=== PATIENT | female | born 1960 | race Caucasian/White ===

== ENCOUNTER 2019-11-14 08:06 | Outpatient (CLI) | payer OTHER, SELFPAY ==
--- NOTE | ~2019-11-14 | US_ITS ---
EXAMINATION: US pelvic complete w TV DATE: 11/14/2019 09:14 INDICATION: Postmenopausal bleeding Comparison:No prior studies for comparison. TECHNIQUE: Multiple transabdominal and endovaginal sonographic images of the pelvis performed. FINDINGS: The uterus measures 6.5 x 4 x 5.2 cm. Uterus is retroverted. There are uterine fibroids, la rgest at the fundus measuring 2 cm maximum dimension. The endometrial complex measures 11 mm. The right ovary measures 2.7 x 3.1 x 1.8 cm and the left ovary is not visualized. There is no free fluid in the pelvis. There are no abnormal masses seen on either side. IMPRESSION: 1. Uterine fibroids, largest measuring 2 cm. Reviewed, dictated and finalized at location A.
== END 2019-11-14 08:07 ==
LOC: MICIMG 08:07
PROVIDERS: PCP Family Medicine; Visit Provider Physician Assistant
DX: N95.0 Postmenopausal bleeding (principal); D25.9 Leiomyoma of uterus, unspecified
CPT/HCPCS: 76830; 76856

== ENCOUNTER 2021-08-01 13:07 | Outpatient (RCR) | payer OTHER, SELFPAY ==
[2021-08-01] MEDS: diphenhydrAMINE HCl CAP 25 MG CAPSULE PO (13:32)
[2021-08-01] MEDS: FAMOTIDINE 20 MG TABLET PO (13:32)
[2021-08-01] MEDS: ACETAMINOPHEN 325 MG TABLET 650 MG PO (13:32)
[2021-08-01 13:34] VITALS: BP 163/89; PULSE 96; TEMP 36.9; O2SAT 96
[2021-08-01] MEDS: BEBTELOVIMAB 175 MG/2 ML VIAL IV PUSH (14:05)
[2021-08-01 14:52] VITALS: BP 134/85; PULSE 79; TEMP 36.6; O2SAT 95
== END 2021-08-01 16:00 ==
LOC: AMCINF 13:07
PROVIDERS: PCP Family Medicine; Referring Provider Family Medicine; Visit Provider Internal Medicine Hematology & Oncology
DX: U07.1 COVID-19 (principal); E11.9 Type 2 diabetes mellitus without complications; I10 Essential (primary) hypertension; I25.10 Atherosclerotic heart disease of native coronary artery without angina pectoris
CPT/HCPCS: A9270; M0222; Q0222

== ENCOUNTER 2022-02-16 10:33 | Outpatient (CLI) | payer OTHER, SELFPAY ==
--- NOTE | ~2022-02-16 | CT_ITS ---
EXAMINATION: CT soft tissue neck w con DATE: 02/16/2022 11:20 INDICATION: Right neck mass. TECHNIQUE: Computed tomography (CT) of the neck was performed with 75 mL Omnipaque-350 intravenous co ntrast. Automated exposure control and iterative reconstruction technique were employed. The dose-delores gth product was 31.31 mGy-cm. COMPARISON: None FINDINGS: There are no pathologically enlarged lymph nodes. There is a 4 mm nodule in left thyroid lo be, likely not clinically significant. The pharynx and larynx are normal. The paranasal sinuses are c lear. The orbits are normal. The mastoid air cells are normal. There is severe cervical spondylosis. IMPRESSION: 1. No abnormal right neck mass or lymphadenopathy. Reviewed, dictated and finalized at location A.
[2022-02-16 11:12] LABS: Estimated Glomerular Filt Rate > 60
== END 2022-02-16 10:34 | disposition home or self-care (01) ==
LOC: ANHIMG 10:34
PROVIDERS: PCP Family Medicine; Visit Provider Physician Assistant
DX: R22.1 Localized swelling, mass and lump, neck (principal)
CPT/HCPCS: 70491; Q9967

== ENCOUNTER 2022-09-17 08:00 | Outpatient (CLI) | payer OTHER, SELFPAY ==
[2022-09-17 20:40] LABS: Anion Gap 5 mmol/L (8-16); Blood Urea Nitrogen 9 mg/dL (7-17); Carbon Dioxide 32 mmol/L (22-30); Chloride 107 mmol/L (98-107); Estimated Glomerular Filt Rate > 60; Glucose 110 mg/dL (65-110); Potassium 4.9 mmol/L (3.4-5.0); Sodium 144 mmol/L (137-145)
== END 2022-09-17 08:01 | disposition home or self-care (01) ==
LOC: ANHGOSHLAB 08:01
PROVIDERS: PCP Family Medicine; Visit Provider Family Medicine
DX: E87.5 Hyperkalemia (principal)
CPT/HCPCS: 36415; 80048

== ENCOUNTER → 2022-11-16 08:29 | Outpatient (CLI) | payer OTHER, SELFPAY ==
--- NOTE | ~2022-11-16 | US_ITS ---
EXAMINATION: US renal BI DATE: 11/16/2022 09:07 INDICATION: Hyperkalemia. TECHNIQUE: Multiple ultrasound grayscale images of the kidneys were obtained. COMPARISON: CT abdomen and pelvis 03/07/2017 FINDINGS: The right kidney measures 10.6 x 4.0 x 4.6 cm. The left kidney measures 10.9 x 4.4 x 5.5 cm. The kidn eys demonstrate normal parenchymal echogenicity. There is no hydronephrosis. The bladder is normal. IMPRESSION: 1. Normal kidneys. No hydronephrosis. Reviewed, dictated and finalized at location B.
== END ==
PROVIDERS: PCP Family Medicine; Visit Provider Internal Medicine Nephrology
DX: E87.5 Hyperkalemia (principal)
CPT/HCPCS: 76775

== ENCOUNTER 2022-11-23 08:01 | Outpatient (CLI) | payer OTHER, SELFPAY ==
[2022-11-23 18:35] LABS: Albumin Level 4.4 g/dL (3.5-5.1); Anion Gap 4 mmol/L (8-16); Blood Urea Nitrogen 12 mg/dL (7-17); Calcium 9.2 mg/dL (8.4-10.2); Carbon Dioxide 29 mmol/L (22-30); Chloride 104 mmol/L (98-107); Creatine Kinase 92 U/L (30-135); Estimated Glomerular Filt Rate > 60; Glucose 106 mg/dL (65-110); Phosphorus 4.2 mg/dL (2.5-4.5); Potassium 4.2 mmol/L (3.4-5.0); Sodium 137 mmol/L (137-145)
[2022-11-23 18:42] LABS: Creatinine Urine 99.1 mg/dL; Total Protein Urine Random 8 mg/dL; Ur Ttl Prot Creatinine Ratio 0.08 mg/mg (0-0.20)
[2022-11-23 19:40] LABS: Potassium Urine Random 44.1 meq/L
[2022-11-29 14:20] LABS: Renin 0.59 ng/mL/h (0.25-5.82)
== END 2022-11-23 08:02 | disposition home or self-care (01) ==
LOC: ANHGOSHLAB 08:03
PROVIDERS: PCP Family Medicine; Visit Provider Internal Medicine Nephrology
DX: E87.5 Hyperkalemia (principal)
CPT/HCPCS: 36415; 80069; 82088; 82533; 82550; 82570; 84133; 84156; 84244

== ENCOUNTER 2022-11-25 21:48 | Emergency (ER) | payer OTHER, SELFPAY ==
--- NOTE | ~2022-11-25 | XR_ITS ---
EXAMINATION: XR chest 1V portable DATE: 11/25/2022 23:20 INDICATION: Food impaction. TECHNIQUE: A single frontal view of the chest was obtained. COMPARISON: Chest 2 views 10/14/2017, CT abdomen and pelvis 03/07/2017 FINDINGS: There is no pneumonia, pleural effusion, or pneumothorax. Cardiomegaly is noted. IMPRESSION: 1. Cardiomegaly. Reviewed, dictated and finalized at location A. IMPRESSION: 1. Cardiomegaly.
[2022-11-25 21:51] VITALS: BP 159/93; PULSE 101; RESP 16; TEMP 36.4; O2SAT 96
[2022-11-25 22:26] VITALS: PULSE 91; RESP 16; O2SAT 93
--- NOTE | 2022-11-25 22:42 | ECG_ITS ---
Measurements Intervals [place] Rate: 85 P: 49 IA: 154 QRS: -5 QRSD: 130 T: 32 QT: 387 QTc: 461 Interpretive Statements SINUS RHYTHM RIGHT BUNDLE BRANCH BLOCK ABNORMAL ECG NO PREVIOUS ECG AVAILABLE FOR COMPARISON Electronically Signed On 11-26-2022 15:36:36 CDT by Shelton Zeng M.D.
[2022-11-25] MEDS: ONDANSETRON INJ 4 MG/2 ML VIAL IV PUSH (22:50)
[2022-11-25] MEDS: SODIUM CHLORIDE 0.9% IV 1,000 ML 999 ML IV CONT (22:50)
--- NOTE | 2022-11-25 22:50 | ED.NAVMDI ---
HPI - Nausea/Vomiting/Diarrhea General Chief complaint: Nausea/Vomiting/Diarrhea <ATA Koch Last Filed: 11/26/22 01:17> Stated complaint: vomiting blood <ATA Koch Last Filed: 11/26/22 01:17> Time Seen by Provider: 11/25/22 22:08 <ATA Koch Last Filed: 11/26/22 01:17> History of Present Illness HPI Narrative: 62 y/o F with a history of hypertension, hyperlipidemia, hyperkalemia, type 2 diabetes, GERD reports for evaluation for blood in her vomit tonight. Patient states she had ice cream with pineapple and walnuts in it, then felt a sensation of something stuck in her throat. States she induced vomiting to dislodge the food in her throat. Reports multiple episodes of emesis and states she had red tinges in her vomit, therefore came to the ED for evaluation. She is denying chest pain, shortness of breath, abdominal pain, lightheadedness or dizziness. States she feels mildly nauseous at this time. Her last episode of emesis was 2 hours ago. Denies history of liver disease or cirrhosis, denies melena or hematochezia. <ATA Koch Last Filed: 11/26/22 01:17> Related Data Home medications: Home Medications Medication Instructions Recorded Confirmed aspirin 81 mg tablet,delayed 81 mg PO DAILY 02/23/19 11/12/22 release (Adult Low Dose Aspirin) carvedilol 6.25 mg tablet 6.25 mg PO 10/04/21 11/12/22 <ATA Koch Last Filed: 11/26/22 01:17> Allergies/Adverse reactions: Allergies Allergy/AdvReac Type Severity Reaction Status Date / Time olmesartan Allergy Unknown Unknown Verified 11/25/22 22:51 <ATA Koch Last Filed: 11/26/22 01:17> Review of Systems Review of Systems: CONSTITUTIONAL: Denies fever, chills EYES: Denies visual changes, redness, or discharge. ENT: Denies rhinorrhea, congestion, sore throat, or otalgia. CARDIOVASCULAR: Denies chest pain, palpitations, or edema. RESPIRATORY: Denies cough or dyspnea. GASTROINTESTINAL: See HPI GENITOURINARY: Denies dysuria or hematuria. SKIN: Denies rash or itching. MUSCULOSKELETAL: Denies back pain, joint pain, or myalgia. NEUROLOGIC: Denies headache, numbness, dizziness, or weakness. PSYCHIATRIC: Denies anxiety or depression. <Sheila Neri PA-C - Last Filed: 11/26/22 01:17> [facility] Past Medical History Medical History: Medical History Androgenic alopecia Diabetes mellitus, type 2 Endometrial carcinoma Hypertensive encephalopathy Hypokalemia Impaired glucose tolerance (oral) Retinal arterial branch occlusion Retinal vein occlusion <Sheila Neri PA-C - Last Filed: 11/26/22 01:17> Surgical History Surgical History: Surgical History History of hysterectomy for cancer S/P JOHN-BSO <Sheila Neri PA-C - Last Filed: 11/26/22 01:17> Family History Family History: Family History Mother Hypertension Family history of elevated blood lipids Family history of cardiovascular disease Cerebrovascular accident Father Family history of cardiovascular disease Grandparent Cerebrovascular accident Other Family history of malignant neoplasm of breast <Sheila Neri PA-C - Last Filed: 11/26/22 01:17> Social History Social History: Social History Social History: Caffeine:daily Smoking status: Never smoker Alcohol intake: never Lack of Transportation: No Lack of Food: Never True Current Housing: I Have Housing Concerned About Future Housing: No Difficulty Paying Gas/Electric Bills: No Difficulty Paying for Meds: No Currently Unemployed: No Education: High School Diploma/GED Difficulty w/ Childcare or Family Care: No Gender identity (if verbalized by
[2022-11-25 23:00] LABS: Basophils Absolute Auto 0.1 K/mm3 (0.0-0.1); Basophils Percent Auto 0.7 % (0.2-1.2); Eosinophils Absolute Auto 0.6 K/mm3 (0-0.3); Hematocrit 46.9 % (37.0-47.0); Hemoglobin 15.3 g/dL (12.0-15.0); Immature Granulocyte Absolute 0.01 K/mm3 (0.00-0.031); Immature Granulocyte Percent A 0.1 % (0-0.5); Lymphocytes Absolute Auto 2.73 K/mm3 (0.9-3.2); Lymphocytes Percent Auto 39.5 % (18.3-44.2); Mean Corpuscular HGB Conc 32.6 g/dl (32-36); Mean Corpuscular Hemoglobin 29.7 pg (26-34); Mean Corpuscular Volume 90.9 fl (80-100); Mean Platelet Volume 10.6 fl (7.4-10.4); Monocytes Absolute Auto 0.6 K/mm3 (0.1-0.6); Monocytes Percent Auto 8.2 % (2.6-8.5); Neutrophils Absolute Auto 2.9 K/mm3 (1.3-6.7); Neutrophils Percent Auto 42.5 % (45.5-73.1); Platelet Count Result 213 k/mm3 (150-375); Red Blood Count 5.16 M/mm3 (4.2-5.4); Red Cell Distribution Width 13.7 % (11.5-14.5); White Blood Count 6.9 K/mm3 (4.5-10.0)
[2022-11-25 23:14] LABS: INR 0.9; Partial Thromboplastin Time 25.7 SECONDS (22.3-36.8); Prothrombin Time 12.7 Seconds (11.1-14.7)
[2022-11-25] MEDS: FAMOTIDINE 20 MG/2 ML VIAL IV PUSH (23:16)
[2022-11-25] MEDS: BELLADONNA ALK/PHENOB ELIX 10 ML, MAG HYDROX/ALUMINUM HYD/SIMETH 30 ML, LIDOCAINE HCL 2... PO (23:17)
[2022-11-25 23:20] LABS: Alanine Aminotransferase 35 U/L (6-35); Albumin Level 4.7 g/dL (3.5-5.1); Alkaline Phosphatase 85 U/L (38-126); Anion Gap 4 mmol/L (8-16); Aspartate Amino Transferase 35 U/L (14-36); Bilirubin,Total 0.4 mg/dL (0.2-1.3); Blood Urea Nitrogen 12 mg/dL (7-17); Calcium 9.7 mg/dL (8.4-10.2); Carbon Dioxide 29 mmol/L (22-30); Chloride 103 mmol/L (98-107); Estimated CRCL calculation 63 ml/min; Estimated Glomerular Filt Rate > 60; Glucose 127 mg/dL (65-110); Sodium 136 mmol/L (137-145)
[2022-11-25 23:26] VITALS: BP 148/82; PULSE 80; RESP 18; O2SAT 97
[2022-11-26 01:09] VITALS: BP 137/72; PULSE 74; RESP 16; O2SAT 93
== END 2022-11-26 01:10 | disposition home or self-care (01) ==
PROVIDERS: Emergency Provider Physician Assistant; PCP Family Medicine
DX: R11.2 Nausea with vomiting, unspecified (principal); I10 Essential (primary) hypertension; E11.9 Type 2 diabetes mellitus without complications; E78.5 Hyperlipidemia, unspecified; H34.9 Unspecified retinal vascular occlusion; K21.9 Gastro-esophageal reflux disease without esophagitis; Z85.44 Personal history of malignant neoplasm of other female genital organs; Z90.710 Acquired absence of both cervix and uterus; Z90.722 Acquired absence of ovaries, bilateral; Z90.79 Acquired absence of other genital organ(s); Z79.82 Long term (current) use of aspirin; Z79.84 Long term (current) use of oral hypoglycemic drugs; I45.10 Unspecified right bundle-branch block
CPT/HCPCS: 36415; 71045; 80053; 85025; 85610; 85730; 93005; 96361; 96374; 96375; 99284; A9270; J2405; J7030

== ENCOUNTER 2022-12-04 10:29 | Outpatient (CLI) | payer OTHER, SELFPAY ==
[2022-12-04 14:31] LABS: Appearance Urine Clear (Clear); Bacteria Urine None Seen /hpf; Bilirubin Urine Negative (Negative); Blood Urine Negative (Negative); Color Urine Yellow (Yellow); Glucose Urine UA 3+ mg/dL (Negative); Ketones Urine Negative (Negative); Leukocyte Esterase Ur Trace LEU/UL (Negative); Nitrate Urine Negative (Negative); Non Pathogenic Casts 0-2; Protein Urine Negative (Negative); RBC Urine 0-2 /hpf (0-2); Specific Grav Ur 1.025 (1.001-1.035); Squamous Epithelial Cell Urine Occasional /hpf (Few); Urobilinogen Urine 0.2 mg/dL (<2.0); WBC Urine 0-5 /hpf; pH Urine 5.5 (5.0-9.0)
[2022-12-04 14:37] LABS: Add Urine Microscopic? YES
== END 2022-12-04 10:30 | disposition home or self-care (01) ==
LOC: ANHGOSHLAB 10:32
PROVIDERS: PCP Family Medicine; Visit Provider Nurse Practitioner Family
DX: R39.9 Unspecified symptoms and signs involving the genitourinary system (principal)
CPT/HCPCS: 81001

== ENCOUNTER 2023-01-10 06:25 | Day surgery (SDC) | payer OTHER, SELFPAY ==
[2022-12-04 09:34] VITALS: BMI 31.6
[2022-12-27 10:52] VITALS: BMI 31.8
--- NOTE | 2023-01-09 15:27 | PM.HPGS ---
History of Present Illness History of Present Illness Consent: Risks, benefits, and alternatives have been discussed and questions answered. Patient agrees to proceed with procedure. Chief complaint: Other Fecal Abnormalities Narrative: Shonda Miranda is a 62 year old female Referred for colon cancer screening. Her last colonoscopy was 11 years ago. Review of Systems Review of Systems: All systems reviewed & are unremarkable except as noted in HPI and below PMFSH Past Medical History Medical History Androgenic alopecia Diabetes mellitus, type 2 Endometrial carcinoma Hypertensive encephalopathy Hypokalemia Impaired glucose tolerance (oral) Retinal arterial branch occlusion Retinal vein occlusion Surgical History Surgical History History of hysterectomy for cancer S/P JOHN-BSO Family History Family History Mother Hypertension Family history of elevated blood lipids Family history of cardiovascular disease Cerebrovascular accident Father Family history of cardiovascular disease Grandparent Cerebrovascular accident Other Family history of malignant neoplasm of breast Social History Social History Social History: Caffeine:daily Smoking status: Never smoker Alcohol intake: current Alcohol use details: rarely Substance use: never Substance use type: does not use Lack of Transportation: No Lack of Food: Never True Current Housing: I Have Housing Concerned About Future Housing: No Difficulty Paying Gas/Electric Bills: No Difficulty Paying for Meds: No Currently Unemployed: No Education: High School Diploma/GED Difficulty w/ Childcare or Family Care: No Living arrangements: with family Gender identity (if verbalized by the patient): Female Spiritual care concerns: No Meds Home Medications and Allergies Home Medications Medication Instructions Recorded Confirmed Type aspirin 81 mg tablet,delayed 81 mg PO DAILY 02/23/19 01/10/23 History release (Adult Low Dose Aspirin) cholecalciferol (vitamin D3) 1,250 50,000 unit PO .every 2 weeks #26 04/03/21 01/10/23 Rx mcg (50,000 unit) capsule caps carvedilol 6.25 mg tablet 6.25 mg PO DAILY 10/04/21 01/10/23 History amlodipine 10 mg tablet See Rx Instructions .Route 02/05/22 01/10/23 Rx .COMPLEX #90 tabs calcipotriene 0.005 % scalp 1 applic topical DAILY #60 mL 05/09/22 01/10/23 Rx solution empagliflozin 25 mg tablet 25 mg PO DAILY #90 tabs 10/15/22 01/10/23 Rx (Jardiance) metformin 500 mg tablet 500 mg PO TID #270 tabs 11/12/22 01/10/23 Rx Allergies Allergy/AdvReac Type Severity Reaction Status Date / Time adhesive AdvReac Intermediate Rash Verified 01/10/23 07:36 Exam Resp: Auscultation: clear to auscultation bilaterally Cardio: Rate: regular rate Rhythm: regular rhythm GI: GI Palp: Yes Soft to palpation and No Tenderness to palpation present (GI) Assessment and Plan Assessment and plan (1) Colon cancer screening: Code(s): Z12.11 - Encounter for screening for malignant neoplasm of colon Status: Acute Assessment and Plan: Colonoscopy with possible biopsy or polypectomy or cautery or injection of substances.
--- NOTE | 2023-01-10 07:23 | WPDANESEPPF ---
Anes - Initial Pre Proc Eval Procedure: Operation Date: 01/10/23 09:00 Proposed Procedures p Diagnostic Colonoscopy - Khari Reyes MD Date/Time: 01/10/23 07:23 Surgeon: Khari Reyes MD Pre Op Diagnosis: Other Fecal Abnormalities Patient Data Age: 62 Gender: F Height: 1.52 m Weight: 74 kg Allergies Allergy/AdvReac Type Severity Reaction Status Date / Time adhesive AdvReac Intermediate Rash Verified 01/10/23 07:36 Home Medications Medication Instructions Recorded Confirmed Type aspirin 81 mg tablet,delayed 81 mg PO DAILY 02/23/19 01/10/23 History release (Adult Low Dose Aspirin) cholecalciferol (vitamin D3) 1,250 50,000 unit PO .every 2 weeks #26 04/03/21 01/10/23 Rx mcg (50,000 unit) capsule caps carvedilol 6.25 mg tablet 6.25 mg PO DAILY 10/04/21 01/10/23 History amlodipine 10 mg tablet See Rx Instructions .Route 02/05/22 01/10/23 Rx .COMPLEX #90 tabs calcipotriene 0.005 % scalp 1 applic topical DAILY #60 mL 05/09/22 01/10/23 Rx solution empagliflozin 25 mg tablet 25 mg PO DAILY #90 tabs 10/15/22 01/10/23 Rx (Jardiance) metformin 500 mg tablet 500 mg PO TID #270 tabs 11/12/22 01/10/23 Rx Patient hx anesthesia problems: none Family hx anesthesia problems: none Results Review: All pre-operative results and documents have been reviewed as part of the pre-operative evaluation. [facility] Past Medical History Medical History Androgenic alopecia Diabetes mellitus, type 2 Endometrial carcinoma Hypertensive encephalopathy Hypokalemia Impaired glucose tolerance (oral) Retinal arterial branch occlusion Retinal vein occlusion Surgical History Surgical History History of hysterectomy for cancer S/P JOHN-BSO Family History Family History Mother Hypertension Family history of elevated blood lipids Family history of cardiovascular disease Cerebrovascular accident Father Family history of cardiovascular disease Grandparent Cerebrovascular accident Other Family history of malignant neoplasm of breast Social History Social History Social History: Caffeine:daily Smoking status: Never smoker Alcohol intake: current Alcohol use details: rarely Substance use: never Substance use type: does not use Lack of Transportation: No Lack of Food: Never True Current Housing: I Have Housing Concerned About Future Housing: No Difficulty Paying Gas/Electric Bills: No Difficulty Paying for Meds: No Currently Unemployed: No Education: High School Diploma/GED Difficulty w/ Childcare or Family Care: No Living arrangements: with family Gender identity (if verbalized by the patient): Female Spiritual care concerns: No Anes - Eval Final PreProcedure Day of Procedure 01/10/23 07:23 Patient weight: obese Heart: regular rate and rhythm Lungs: clear to auscultation Airway: Mallampati scale class II Neurological: alert and oriented Last oral intake: >/= 8 hours ASA classification: III Emergent: no Anesthetic plan: proceed Anesthesia type and monitoring: general GIVS and standard monitoring Results Review: All pre-operative results and documents have been reviewed as part of the pre-operative evaluation. Informed Consent: The patient's anesthetic plan and its attendant risks and benefits were discussed with the patient/family/POA. Questions were solicited and answers provided to the satisfaction of the patient/family/POA.
[2023-01-10 07:39] VITALS: BP 145/85; PULSE 89; RESP 16; TEMP 36.6; O2SAT 98; BMI 30.9
[2023-01-10] MEDS: LACTATED RINGERS 1,000 ML 150 ML IV CONT (07:58)
[2023-01-10 08:01] LABS: Glucose Point of Care 118 mg/dl (65-105)
[2023-01-10 08:38] VITALS: BP 108/65; PULSE 78; RESP 16; TEMP 36.4; O2SAT 95
[2023-01-10 08:48] VITALS: BP 122/70; PULSE 67; RESP 16; O2SAT 98
[2023-01-10 08:58] VITALS: BP 108/65; PULSE 68; RESP 16; O2SAT 95
--- NOTE | 2023-01-10 11:35 | WPDANESPN ---
Anes - Prog Note Post-Op Date/Time: 01/10/23 11:35 Cardiovascular status: normal Respiratory status: normal Airway patency: baseline Mental status: baseline Post-Op hydration status: normal Vital Signs: Last Vital Signs Temp 36.4 C 01/10/23 08:38 Pulse 68 01/10/23 08:58 Resp 16 01/10/23 08:58 BP 108/65 01/10/23 08:58 Pulse Ox 95 01/10/23 08:58 O2 Del Method Room Air 01/10/23 08:58 Pain Score (VAS): 0 I/O: Intake & Output 01/09/23 01/10/23 01/10/23 23:59 07:59 15:59 Intake Total 600 Balance 600 01/10/23 07:56 POC Capillary Glucose 118 H Post-procedural complaints: none Patient Feedback: Patient satisfied with anesthetic care. Other Findings: Patient vital signs back to baseline. Patient denies nausea and vomiting. Patient's pain under control. Patient OK for discharge.
== END 2023-01-10 09:06 | disposition home or self-care (01) ==
PROVIDERS: PCP Family Medicine; Visit Provider Internal Medicine Gastroenterology
PROC: 0DJD8ZZ Inspection of Lower Intestinal Tract, Via Natural or Artificial Opening Endoscopic (ICD-10-PCS; CPT 45378; principal; 2023-01-10 09:00)
DX: Z12.11 Encounter for screening for malignant neoplasm of colon (principal); K57.30 Diverticulosis of large intestine without perforation or abscess without bleeding; K64.8 Other hemorrhoids
CPT/HCPCS: 45378

== ENCOUNTER 2023-02-27 07:55 | Outpatient (CLI) | payer MEDICARE, SELFPAY ==
[2023-02-27 19:06] LABS: Basophils Absolute Auto 0.1 K/mm3 (0.0-0.1); Basophils Percent Auto 0.9 % (0.2-1.2); Eosinophils Absolute Auto 0.4 K/mm3 (0-0.3); Hematocrit 44.6 % (37.0-47.0); Hemoglobin 14.4 g/dL (12.0-15.0); Immature Granulocyte Absolute 0.01 K/mm3 (0.00-0.031); Immature Granulocyte Percent A 0.2 % (0-0.5); Lymphocytes Absolute Auto 1.88 K/mm3 (0.9-3.2); Mean Corpuscular HGB Conc 32.3 g/dl (32-36); Mean Corpuscular Hemoglobin 30.1 pg (26-34); Mean Corpuscular Volume 93.3 fl (80-100); Mean Platelet Volume 10.7 fl (7.4-10.4); Monocytes Absolute Auto 0.5 K/mm3 (0.1-0.6); Monocytes Percent Auto 8.6 % (2.6-8.5); Neutrophils Absolute Auto 2.9 K/mm3 (1.3-6.7); Neutrophils Percent Auto 50.3 % (45.5-73.1); Platelet Count Result 208 k/mm3 (150-375); Red Blood Count 4.78 M/mm3 (4.2-5.4); Red Cell Distribution Width 13.2 % (11.5-14.5); White Blood Count 5.7 K/mm3 (4.5-10.0)
[2023-02-27 20:35] LABS: Anion Gap 9 mmol/L (8-16); Blood Urea Nitrogen 13 mg/dL (7-17); Calcium 9.8 mg/dL (8.4-10.2); Carbon Dioxide 27 mmol/L (22-30); Chloride 107 mmol/L (98-107); Cholesterol 205 mg/dL (0-200); Estimated Glomerular Filt Rate > 60; Glucose 107 mg/dL (65-110); HDL Direct 65 mg/dL; Potassium 5.1 mmol/L (3.4-5.0); Sodium 143 mmol/L (137-145); Triglycerides 138 mg/dL (<150)
[2023-02-27 20:37] LABS: Creatinine Urine 70.1 mg/dL
[2023-02-27 20:46] LABS: LDL Cholesterol Direct 105 mg/dL; MALB Creatinine Ratio 14.4 mg/g (0-30); Microalbumin Urine Random 10.1 mg/L (0-16.7)
[2023-02-27 21:39] LABS: Hemoglobin A1C 5.9 % (<5.7)
== END 2023-02-27 07:56 | disposition home or self-care (01) ==
PROVIDERS: PCP Family Medicine; Visit Provider Nurse Practitioner Family
DX: E78.2 Mixed hyperlipidemia (principal); E83.52 Hypercalcemia; I10 Essential (primary) hypertension; E11.9 Type 2 diabetes mellitus without complications
CPT/HCPCS: 36415; 80048; 80061; 82043; 83036; 84443; 85025

== ENCOUNTER 2023-04-01 07:57 | Outpatient (CLI) | payer MEDICARE, SELFPAY ==
[2023-04-01 20:36] LABS: Potassium 4.8 mmol/L (3.4-5.0)
[2023-04-01 20:39] LABS: Albumin Level 4.4 g/dL (3.5-5.1); Anion Gap 10 mmol/L (8-16); Blood Urea Nitrogen 10 mg/dL (7-17); Calcium 9.6 mg/dL (8.4-10.2); Carbon Dioxide 26 mmol/L (22-30); Chloride 107 mmol/L (98-107); Estimated Glomerular Filt Rate > 60; Glucose 104 mg/dL (65-110); Phosphorus 3.5 mg/dL (2.5-4.5); Sodium 143 mmol/L (137-145)
== END 2023-04-01 07:58 | disposition home or self-care (01) ==
LOC: ANHGOSHLAB 07:58
PROVIDERS: PCP Family Medicine; Visit Provider Internal Medicine Nephrology
DX: E87.5 Hyperkalemia (principal)
CPT/HCPCS: 36415; 80069

== ENCOUNTER 2023-04-11 08:08 | Outpatient (CLI) | payer MEDICARE, SELFPAY ==
[2023-04-11 20:12] LABS: Cholesterol 222 mg/dL (0-200); HDL Direct 64 mg/dL; Triglycerides 121 mg/dL (<150)
[2023-04-11 20:23] LABS: LDL Cholesterol Direct 120 mg/dL
== END 2023-04-11 08:09 | disposition home or self-care (01) ==
PROVIDERS: PCP Family Medicine; Visit Provider Internal Medicine Cardiovascular Disease
DX: E11.69 Type 2 diabetes mellitus with other specified complication (principal); E78.5 Hyperlipidemia, unspecified
CPT/HCPCS: 36415; 80061

== ENCOUNTER 2023-09-12 10:22 | Observation (INO) | payer MEDICARE, SELFPAY ==
[2023-09-12] VITALS (39 sets, daily range): BP systolic 136–180; BP diastolic 67–98; PULSE 75–105; RESP 12–29; TEMP 36.6–36.9; O2SAT 93–99
--- NOTE | ~2023-09-12 | CT_ITS ---
EXAMINATION: CTA chest PE protocol DATE: 09/12/2023 13:55 INDICATION: Chest pain and shortness of breath. TECHNIQUE: Computed tomography angiography (CTA) of the chest was performed with 100 mL Omnipaque-350 intravenous contrast timed to evaluate the pulmonary arteries. Coronal maximum intensity projection 3D-reconstructions were created by the technologist. Automated exposure control and iterative reconst ruction technique were employed. The dose-length product was 402.11 mGy-cm. COMPARISON: None. FINDINGS: The lungs demonstrate mild atelectasis. No pleural effusion. The heart size is normal. No p ericardial effusion. There is no pulmonary embolus. There are changes of cholecystectomy. There is mi ld thoracic spondylosis. IMPRESSION: 1. No pulmonary embolus. Reviewed, dictated and finalized at location A. IMPRESSION: 1. No pulmonary embolus.
--- NOTE | ~2023-09-12 | XR_ITS ---
EXAMINATION: XR chest 2V DATE: 09/12/2023 11:14 INDICATION: Chest pain. TECHNIQUE: Frontal and lateral views of the chest were obtained. COMPARISON: Chest single view 11/25/2022 FINDINGS: There is no pneumonia, pleural effusion, or pneumothorax. The heart size is normal. Surgica l clips in the right upper quadrant are likely from cholecystectomy. IMPRESSION: 1. No acute cardiopulmonary disease. Reviewed, dictated and finalized at location A.
--- NOTE | ~2023-09-12 | NM_ITS ---
EXAMINATION: NM robbie stress w perfusion DATE: 09/13/2023 10:01 INDICATION: Chest pain. TECHNIQUE: Rest images were obtained following intravenous administration of 11.2 mCi Tc99m tetrofosm in (Myoview). The patient was infused intravenously with Lexiscan (regadenoson). Then, 22.98 mCi Tc99 m tetrofosmin (Myoview) was administered intravenously, and stress images were obtained. Data was rec onstructed into short axis and horizontal and vertical long axis SPECT images. Gated SPECT images wer e also obtained. COMPARISON: Chest CT 09/12/2023 FINDINGS: There is no definite reversible or fixed perfusion abnormality to suggest ischemia or infar ction. There is no segmental wall motion abnormality. Left ventricular ejection fraction measures > 70%. IMPRESSION: 1. No definite ischemia or infarct. 2. Normal left ventricular ejection fraction measuring >70%. Reviewed, dictated and finalized at location A.
--- NOTE | 2023-09-12 10:45 | ECG_ITS ---
[facility] [address] Test Date: 2023-09-12 Pat Name: Shonda Miranda Department: Room: Gender: F Transmission Systems Operator: KEDAR : 1960 Requested By: Ruthann Keane Order Number: [id number] Reading MD: Jaydon Maxwell D.O. Measurements Intervals [place] Rate: 90 P: 27 VT: 155 QRS: 11 QRSD: 132 T: 9 QT: 378 QTc: 463 Interpretive Statements SINUS RHYTHM RIGHT BUNDLE BRANCH BLOCK CONSIDER INFERIOR INFARCT, AGE INDETERMINATE ABNORMAL ECG No previous ECG available for comparison Electronically Signed On 09-12-2023 14:06:14 CDT by Jaydon Maxwell D.O.
[2023-09-12 10:59] LABS: Basophils Absolute Auto 0.1 K/mm3 (0.0-0.1); Eosinophils Absolute Auto 0.6 K/mm3 (0-0.3); Eosinophils Percent Auto 9.2 % (0-4.4); Hematocrit 44.8 % (37.0-47.0); Hemoglobin 14.7 g/dL (12.0-15.0); Immature Granulocyte Absolute 0.02 K/mm3 (0.00-0.031); Immature Granulocyte Percent A 0.3 % (0-0.5); Lymphocytes Absolute Auto 1.97 K/mm3 (0.9-3.2); Lymphocytes Percent Auto 33.1 % (18.3-44.2); Mean Corpuscular HGB Conc 32.8 g/dl (32-36); Mean Corpuscular Hemoglobin 30.6 pg (26-34); Mean Corpuscular Volume 93.3 fl (80-100); Mean Platelet Volume 10.6 fl (7.4-10.4); Monocytes Absolute Auto 0.5 K/mm3 (0.1-0.6); Monocytes Percent Auto 8.7 % (2.6-8.5); Neutrophils Absolute Auto 2.8 K/mm3 (1.3-6.7); Neutrophils Percent Auto 47.7 % (45.5-73.1); Platelet Count Result 205 k/mm3 (150-375); Red Cell Distribution Width 13.5 % (11.5-14.5)
[2023-09-12 11:11] LABS: INR 0.9; Prothrombin Time 12.3 Seconds (11.1-14.7)
[2023-09-12 11:12] LABS: Partial Thromboplastin Time 24.9 Seconds (22.3-36.8)
[2023-09-12 11:17] LABS: Alanine Aminotransferase 37 U/L (6-35); Albumin Level 4.7 g/dL (3.5-5.1); Alkaline Phosphatase 84 U/L (38-126); Anion Gap 8 mmol/L (4-12); Aspartate Amino Transferase 32 U/L (14-36); Bilirubin,Total 0.5 mg/dL (0.2-1.3); Blood Urea Nitrogen 13 mg/dL (7-17); Calcium 9.2 mg/dL (8.4-10.2); Carbon Dioxide 25 mmol/L (22-30); Chloride 107 mmol/L (98-107); Estimated CRCL calculation 62 ml/min; Estimated Glomerular Filt Rate > 60; Glucose 142 mg/dL (65-110); Lipase 215 U/L (23-300); Potassium 3.9 mmol/L (3.4-5.0); Sodium 140 mmol/L (137-145)
[2023-09-12 11:28] LABS: Troponin I < 0.012 ng/mL (0.000-0.034)
[2023-09-12] MEDS: ASPIRIN 81 MG CHEWABLE TABLET 324 MG PO (12:11)
--- NOTE | 2023-09-12 12:19 | ED.CHESTPAIN ---
HPI - Chest Pain General Chief Complaint: Chest Pain <ATA Kimble Last Filed: 09/12/23 14:45> Stated Complaint: SOB, chest pain <ATA Kimble Last Filed: 09/12/23 14:45> Time Seen by Provider: 09/12/23 11:47 <ATA Kimble Last Filed: 09/12/23 14:45> Source: patient <ATA Kimble Last Filed: 09/12/23 14:45> Mode of arrival: ambulatory <ATA Kimble Last Filed: 09/12/23 14:45> Limitations: no limitations <ATA Kimble Last Filed: 09/12/23 14:45> History of Present Illness HPI narrative: This is a 63 year old female that presents to the ER for an episode of chest pain. Reports she was seated in the car. Had an episode that last about 15 minutes of substernal chest pain/pressure. This was relieved without intervention. Reports she had an associated mild headache and shortness of breath. Her Correctional Case Records Supervisor is Dr. Diego. She believes her most recent stress test was in around 2015. Denies any current symptoms. <ATA Kimble Last Filed: 09/12/23 14:45> Related Data Home Medications: Home Medications Medication Instructions Recorded Confirmed aspirin 81 mg tablet,delayed 81 mg PO DAILY 02/23/19 09/12/23 release (Adult Low Dose Aspirin) carvedilol 6.25 mg tablet 6.25 mg PO BID 10/04/21 09/12/23 amlodipine 10 mg tablet 10 mg PO DAILY 09/12/23 09/12/23 metformin 500 mg tablet 500 mg PO BID 09/12/23 09/12/23 <ATA Kimble Last Filed: 09/12/23 14:45> Allergies/Adverse Reactions: Allergies Allergy/AdvReac Type Severity Reaction Status Date / Time adhesive AdvReac Intermediate Rash Verified 07/01/23 14:40 <ATA Kimble Last Filed: 09/12/23 14:45> Review of Systems Review of Systems: CONSTITUTIONAL: Denies fever CARDIOVASCULAR: Reports chest pain. Denies edema. RESPIRATORY: Reports dyspnea. NEUROLOGIC: Reports headache. Denies numbness, or weakness. <Neetu Tran PA-C - Last Filed: 09/12/23 14:45> All systems reviewed & are unremarkable except as noted in HPI and below <Neetu Tran PA-C - Last Filed: 09/12/23 14:45> [facility] Past Medical History Medical History: Medical History Androgenic alopecia Diabetes mellitus, type 2 Endometrial carcinoma Hypertensive encephalopathy Hypokalemia Impaired glucose tolerance (oral) Retinal arterial branch occlusion Retinal vein occlusion <Neetu Tran PA-C - Last Filed: 09/12/23 14:45> Surgical History Surgical History: Surgical History History of hysterectomy for cancer S/P JOHN-BSO <Neetu Tran PA-C - Last Filed: 09/12/23 14:45> Family History Family History: Family History Mother Hypertension Family history of elevated blood lipids Family history of cardiovascular disease Cerebrovascular accident Father Family history of cardiovascular disease Grandparent Cerebrovascular accident Other Family history of malignant neoplasm of breast <Neetu Tran PA-C - Last Filed: 09/12/23 14:45> Social History Social History: Social History Social History: Caffeine:daily Smoking status: Never smoker Alcohol intake: current Alcohol use details: rarely Substance use: never Substance use type: does not use Do You Feel Safe in your Home?: Yes Lack of Transportation: No Lack of Food: Never True Current Housing: I Have Housing Concerned About Future Housing: No Difficulty Paying Gas/Electric Bills: No Difficulty Paying for Meds: No Currently Unemployed: No Education: High School Diploma/GED Difficulty w/ Childcare or Family Care: No Living arrangements: with family Gender identity (if verbalized by the patient): Female S
[2023-09-12 13:08] LABS: D Dimer 0.63 ug/mL (<0.48)
--- NOTE | 2023-09-12 14:03 | ECG_ITS ---
Measurements Intervals [place] Rate: 90 P: 27 MT: 155 QRS: 11 QRSD: 132 T: 9 QT: 378 QTc: 463 Interpretive Statements SINUS RHYTHM RIGHT BUNDLE BRANCH BLOCK CONSIDER INFERIOR INFARCT, AGE INDETERMINATE ABNORMAL ECG Electronically Signed On 09-12-2023 14:06:14 CDT by Jaydon Maxwell D.O. Compared to ECG 09/12/2023 10:30:38 No significant changes MTDD
--- NOTE | 2023-09-12 14:13 | PM.IMHP ---
H&P: HPI History of Present Illness Date/Time: 09/12/23 14:13 Chief Complaint: Chest pain Narrative: This is a 63 year old female patient with past history of diabetes, HTN, obesity who presented to ER after having a 15 minute episode of substernal chest pain that resolved without intervention. Patient reports an episode similar to this about 7 years ago but this time it lasted a lot longer. She describes the pain as constant nonradiating but also occurring in the back of her neck simultaneously. She states that it resolved as soon as they pulled into the parking lot of the emergency department. She was passenger in a car at time of occurrence and did not have any exertion or other explainable cause for the beginning of the pain. Patient states that she has seen Cardiology once a year since the initial episode 7 years ago. She did have an episode of hyperkalemia and Cardiology discontinued statin therapy for this patient and her hyperkalemia resolved. Patient reports that her last A1c was around 6.5 in April 2023. She takes Jardiance and metformin. She was prescribed Ozempic but never started it. Review of Systems Review of Systems: All systems reviewed & are unremarkable except as noted in HPI and below PMFSH Past Medical History Medical History Androgenic alopecia Diabetes mellitus, type 2 Endometrial carcinoma Hypertensive encephalopathy Hypokalemia Impaired glucose tolerance (oral) Retinal arterial branch occlusion Retinal vein occlusion Surgical History Surgical History History of hysterectomy for cancer S/P JOHN-BSO Family History Family History Mother Hypertension Family history of elevated blood lipids Family history of cardiovascular disease Cerebrovascular accident Father Family history of cardiovascular disease Grandparent Cerebrovascular accident Other Family history of malignant neoplasm of breast Social History Social History Social History: Caffeine:daily Smoking status: Never smoker Alcohol intake: current Alcohol use details: rarely Substance use: never Substance use type: does not use Do You Feel Safe in your Home?: Yes Lack of Transportation: No Lack of Food: Never True Current Housing: I Have Housing Concerned About Future Housing: No Difficulty Paying Gas/Electric Bills: No Difficulty Paying for Meds: No Currently Unemployed: No Education: High School Diploma/GED Difficulty w/ Childcare or Family Care: No Living arrangements: with family Gender identity (if verbalized by the patient): Female Spiritual care concerns: No Meds Home Medications and Allergies Home Medications Medication Instructions Recorded Confirmed Type aspirin 81 mg tablet,delayed 81 mg PO DAILY 02/23/19 09/12/23 History release (Adult Low Dose Aspirin) cholecalciferol (vitamin D3) 1,250 50,000 unit PO .every 2 weeks #26 04/03/21 09/12/23 Rx mcg (50,000 unit) capsule caps carvedilol 6.25 mg tablet 6.25 mg PO BID 10/04/21 09/12/23 History empagliflozin 25 mg tablet 25 mg PO DAILY #90 tabs 06/19/23 09/12/23 Rx (Jardiance) amlodipine 10 mg tablet 10 mg PO DAILY 09/12/23 09/12/23 History metformin 500 mg tablet 500 mg PO BID 09/12/23 09/12/23 History Allergies Allergy/AdvReac Type Severity Reaction Status Date / Time adhesive AdvReac Intermediate Rash Verified 07/01/23 14:40 Vital Signs Vital Signs - 24 hr 09/12/23 10:29 09/12/23 11:02 09/12/23 11:02 Temperature 36.6 C Pulse Rate 75 80 Respiratory Rate 16 Blood Pressure 176/67 H Pulse Oximetry 97 Oxygen Delivery Room Air Room Air Exam Narrative: GENERAL: Awake alert oriented pleasant no acute distress, generally obese HEAD: Normocephalic,
[2023-09-12 14:42] LABS: Troponin I < 0.012 ng/mL (0.000-0.034)
--- NOTE | 2023-09-12 15:31 | ADMGEN ---
This patient, Shonda Miranda, was admitted to Medical Room 347-. Patient/family oriented to hospital policies and general routines including ID bracelet, bed and alarms, visiting hours, pain management, procedures, bathroom and other care routines, personal items, smoking policy, room service/diet, and visiting hours. Information on how to activate the Rapid Response Team has been discussed. Patient/Family are encouraged to report perceived risks to care and to ask questions if they do not understand what they are told or what they should do.
[2023-09-12 17:03] LABS: Glucose Point of Care 109 mg/dl (65-105)
[2023-09-12] MEDS: metFORMIN HCL 500 MG TABLET 1000 MG PO (17:20)
[2023-09-12 17:58] LABS: Troponin I < 0.012 ng/mL (0.000-0.034)
[2023-09-12 20:58] LABS: Glucose Point of Care 118 mg/dl (65-105)
[2023-09-12 21:14] LABS: Hemoglobin A1C 6.1 % (<5.7)
[2023-09-12] MEDS: carvediloL 6.25 MG TABLET PO (21:34)
[2023-09-13] VITALS: PULSE 69
--- NOTE | 2023-09-13 | ECHO_ITS ---
Patient Info Name: Shonda Miranda Age: 63 years : 1960 Gender: Female Ht: 60 in Wt: 165 lbs BSA: 1.81 m2 HR: 77 bpm BP: 165 / 92 mmHg Heart Rhythm: Sinus Rhythm Technical Quality: Fair Exam Date: 09/13/2023 7:24 AM Exam Location: Echo Lab Patient Status: Outpatient Admit Date: 09/12/2023 Staff Ordering Physician: Juan Harmon APRN Filter Plant Operator: Francia Sánchez RDCS Attending Provider: Halina Marroquin APRN Referring Physician: Faustino ANNE; Exam Type: CA echo dop color flow w con Study Info Indications R07.9 - Chest pain, unspecified Complete two-dimensional, color flow and Doppler transthoracic echocardiogram is performed with contrast to opacify the left ventricle and to improve the deliniation of the left ventricle endocardial borders. Contrast/Agitated Saline Contrast/Ag. Saline: Definity Amount: 2.00 ml Administered By: Francia Sánchez RDCS Existing IV Access: Yes IV Access Condition: patent with no signs of infiltration Summary 1. Definity contrast utilized to improve visualization. 2. Left ventricular hypertrophy with normal LV size and hyperdynamic systolic function. 3. Mitral annular calcification. 4. Mild pulmonic valve regurgitation. 5. Sinus rhythm. Left Ventricle Left ventricular chamber dimension is normal. Left ventricular systolic function is hyperdynamic, estimated at >70%. There is mild concentric increased left ventricular wall thickness. The left ventricular diastolic function is grade I diastolic dysfunction. Right Ventricle Right ventricular chamber dimension is normal. Left Atria Left atrial chamber dimension is normal. Right Atria Right atrial chamber dimension is normal. Aortic Valve The aortic valve is trileaflet. There is mild aortic valve sclerosis. Pulmonic Valve The pulmonic valve is not well visualized. There is trace pulmonic regurgitation. Mitral Valve The mitral valve has normal leaflets. The mitral valve annulus is moderately calcified. Tricuspid Valve The tricuspid valve leaflets are normal. Pericardium/Pleural The pericardium appears normal. Aorta The aortic root size at the sinus of Valsalva is normal. Left Ventricular Outflow Tract Name Value Normal LVOT 2D LVOT Diameter 1.99 cm LVOT Doppler LVOT Peak Gradient 4 mmHg LVOT Mean Gradient 2 mmHg LVOT VTI 20.79 cm LVOT VTI/AV VTI Ratio 0.76 LVOT Stroke Volume 64.86 ml LVOT CO 4.59 l/min LVOT CI 2.53 L/min/m2 Pulmonic Valve Name Value Normal RVOT Doppler RVOT Peak Gradient 3 mmHg PV Doppler PV Peak Gradient 4 mmHg Mitral Valve --------
[2023-09-13 04:00] VITALS: PULSE 72
[2023-09-13 05:36] LABS: Basophils Absolute Auto 0.1 K/mm3 (0.0-0.1); Basophils Percent Auto 0.9 % (0.2-1.2); Eosinophils Absolute Auto 0.4 K/mm3 (0-0.3); Hematocrit 45.6 % (37.0-47.0); Hemoglobin 14.9 g/dL (12.0-15.0); Immature Granulocyte Absolute 0.01 K/mm3 (0.00-0.031); Immature Granulocyte Percent A 0.2 % (0-0.5); Lymphocytes Absolute Auto 2.06 K/mm3 (0.9-3.2); Lymphocytes Percent Auto 37.5 % (18.3-44.2); Mean Corpuscular HGB Conc 32.7 g/dl (32-36); Mean Corpuscular Hemoglobin 30.8 pg (26-34); Mean Corpuscular Volume 94.2 fl (80-100); Mean Platelet Volume 10.5 fl (7.4-10.4); Monocytes Absolute Auto 0.5 K/mm3 (0.1-0.6); Monocytes Percent Auto 9.6 % (2.6-8.5); Neutrophils Absolute Auto 2.4 K/mm3 (1.3-6.7); Neutrophils Percent Auto 43.8 % (45.5-73.1); Platelet Count Result 191 k/mm3 (150-375); Red Blood Count 4.84 M/mm3 (4.2-5.4); Red Cell Distribution Width 13.4 % (11.5-14.5); White Blood Count 5.5 K/mm3 (4.5-10.0)
[2023-09-13 05:41] VITALS: BP 165/92; PULSE 77; RESP 18; TEMP 36.6; O2SAT 96
[2023-09-13 05:48] LABS: Alanine Aminotransferase 38 U/L (6-35); Albumin Level 4.6 g/dL (3.5-5.1); Alkaline Phosphatase 92 U/L (38-126); Anion Gap 7 mmol/L (4-12); Aspartate Amino Transferase 29 U/L (14-36); Bilirubin,Total 0.7 mg/dL (0.2-1.3); Blood Urea Nitrogen 13 mg/dL (7-17); Calcium 9.1 mg/dL (8.4-10.2); Carbon Dioxide 25 mmol/L (22-30); Chloride 109 mmol/L (98-107); Cholesterol 214 mg/dL (0-200); Estimated CRCL calculation 72 ml/min; Estimated Glomerular Filt Rate > 60; Glucose 108 mg/dL (65-110); HDL Direct 70 mg/dL; Potassium 3.8 mmol/L (3.4-5.0); Sodium 141 mmol/L (137-145); Triglycerides 184 mg/dL (<150)
[2023-09-13 05:58] LABS: LDL Cholesterol Direct 105 mg/dL
[2023-09-13] MEDS: PERFLUTREN LIPID MICROSPHERES 1.5 ML VIAL DILUTED TO 10 ML TOTAL VOLUME IV PUSH (07:29)
[2023-09-13 08:18] LABS: Glucose Point of Care 112 mg/dl (65-105)
--- NOTE | 2023-09-13 08:55 | IVDEFINITY ---
Prior to administration of IV Definity the patient was educated on the risks and benefits of the imaging enhancing agent including potential adverse side effects. The patient verbalized understanding. Allergies were verified. No exclusion criteria were identified and at least one of the following inclusion criteria were met: 1) physician request, 2) patient technically difficult to image (per the [place] [employer]chocardi[employer] guidelines of two or more segments not discernable within the apical view), or 3) questionable left ventricular function. ?
[2023-09-13 09:59] VITALS: PULSE 98
[2023-09-13] MEDS: metFORMIN HCL 500 MG TABLET PO (09:59)
[2023-09-13] MEDS: amLODIPine BESYLATE 5 MG TABLET 10 MG PO (09:59)
[2023-09-13] MEDS: carvediloL 6.25 MG TABLET PO (09:59)
[2023-09-13] MEDS: EMPAGLIFLOZIN 25 MG TABLET PO (09:59)
[2023-09-13] MEDS: ASPIRIN 81 MG ENTERIC TABLET PO (09:59)
[2023-09-13] MEDS: ENOXAPARIN 40 MG/0.4 ML SYRINGE SUB-Q (09:59)
[2023-09-13 12:00] VITALS: PULSE 94
[2023-09-13 12:04] LABS: Glucose Point of Care 102 mg/dl (65-105)
--- NOTE | 2023-09-13 12:46 | PM.IMPN ---
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 supervisor use Code(s): E11.9 - Type 2 diabetes mellitus without complications Status: Acute Assessment and Plan: 09/12/23: ACHS fingerstick glucose with low dose SSI Continue home medications, Jardiance and metformin A1c will be rechecked 09/13/23: (3) Essential (primary) hypertension: Code(s): I10 - Essential (primary) hypertension Status: Acute Assessment and Plan: 09/12/23: Continue home medications, amlodipine and carvedilol 09/13/23: (4) Mixed hyperlipidemia: Code(s): E78.2 - Mixed hyperlipidemia Status: Acute Assessment and Plan: 09/12/23: Patient not on statin at this time Check lipid panel with AM labs 09/13/23: Time Spent With Patient Time with patient: 25 - 35 minutes Subjective Date/time seen: 09/13/23 12:46 Interval history: This is a 63-year-old female who presented to the hospital on 09/12/2023 with complaint of chest pain. Patient had a 15 minute episode of substernal chest pain that resolved without intervention. Workup in the hospital included a chest x-ray which was negative. A chest CTA which was negative for PE. She had a Lexiscan stress test done today which did not show any definitive ischemia or infarct, her LV systolic function was normal with an estimated EF of greater than 70%. Review of Systems Review of Systems: All systems reviewed & are unremarkable except as noted in HPI and below Constitutional: Constitutional: Reports as per HPI and Reports no additional constitutional complaints Eyes: Eyes: Reports as per HPI and Reports no additional eye complaints ENT: Reports system reviewed and no additional complaints, except as documented and Reports as per HPI Cardiovascular: Cardiovascular: Reports as per HPI and Reports no additional cardiovascular complaints Respiratory: Respiratory: Reports as per HPI and Reports no additional respiratory complaints Gastrointestinal: Gastrointestinal: Reports as per HPI and Reports no additional gastrointestinal complaints Genitourinary: Genitourinary: Reports no additional female genitourinary complaints and Reports as per HPI Musculoskeletal: Musculoskeletal: Reports no additional musculoskeletal complaints and Reports as per HPI Integumentary/Breasts: Skin/Breast: Reports system reviewed and no additional complaints, except as docu and Reports as per HPI Neurologic: Reports system reviewed and no additional complaints, except as documented and Reports as per HPI Psychiatric: Psychiatric: Reports no additional psychiatric complaints and Reports as per HPI Exam Narrative: General: In no acute distress, well nourished Head: atraumatic, no encephalopathy Eyes: EOMI, PERRLA, sclera clear ENT: moist mucous membranes, nasal passages clear Neck: supple, no JVD, no adenopathy, trachea midline Cardiac: Normal S1 and S2. No murmur, gallops or friction rubs, peripheral pulses intact. Respiratory: Lungs clear to auscultation, no adventitious lung sounds Gastrointestinal: soft, non-distended, non-tender, normoactive bowel sounds. : voiding without difficulty. Extremities: moves all extremities well, no edema, good ROM, strength 5/5 Skin: clean, dry, intact. No wounds or lesions. Neuro: Alert and oriented x4, cranial nerves intact, no neuro deficits. Psych: normal mood, normal affect, interactive Objective Data Vital Signs Vital Signs: Vital Signs - 24 hr 09/12/23 13:00 09/12/23 13:02
[2023-09-13 13:47] VITALS: BP 131/71; PULSE 86; RESP 16; TEMP 36.6; O2SAT 96
--- NOTE | 2023-09-13 14:13 | EST_ITS ---
Patient Info Name: Shonda Miranda Age: 63 years : 1960 Gender: Female Ht: 60 in Wt: 165 lbs BSA: 1.81 m2 HR: 85 bpm BP: 151 / 91 mmHg Heart Rhythm: Sinus Rhythm Exam Date: 09/13/2023 9:01 AM Exam Location: Echo Lab Patient Status: Inpatient Admit Date: 09/12/2023 Staff Ordering Physician: Juan Harmon APRN Attending Provider: Halina Marroquin APRN Exercise Technologist: Cira Euceda, ERICKA Nurse: Ruth Black APN Exam Type: CA stress robbie w NM Study Info Indications R07.89 - Other chest pain A regadenoson stress test was performed. Summary 1. Sinus rhythm with right bundle branch block. 2. No ST segment abnormalities seen following Lexiscan infusion. 3. Clinically and electrocardiographically unremarkable Lexiscan stress test. 4. Myocardial perfusion imaging exam to be dictated by Radiology. Protocol: Lexiscan Stress ECG Details Stage: REST Duration (min): 0 min : 54 sec HR (bpm): 83 SBP (mmHg): 151 DBP (mmHg): 89 Stage: REST Duration (min): 5 min : 19 sec HR (bpm): 92 SBP (mmHg): 151 DBP (mmHg): 89 Stage: STAGE 1 Duration (min): 0 min : 59 sec HR (bpm): 121 SBP (mmHg): 157 DBP (mmHg): 78 Stage: RECOVERY Duration (min): 1 min : 0 sec HR (bpm): 123 SBP (mmHg): 157 DBP (mmHg): 78 Stage: RECOVERY Duration (min): 2 min : 0 sec HR (bpm): 119 SBP (mmHg): 157 DBP (mmHg): 78 Stage: RECOVERY Duration (min): 3 min : 0 sec HR (bpm): 109 SBP (mmHg): 155 DBP (mmHg): 78 Stage: RECOVERY Duration (min): 4 min : 0 sec HR (bpm): 100 SBP (mmHg): 155 DBP (mmHg): 78 Stage: RECOVERY Duration (min): 4 min : 2 sec HR (bpm): 102 SBP (mmHg): 155 DBP (mmHg): 78 Rest HR: 92 bpm Peak HR: 127 bpm Rest Sys BP: 151 mmHg Peak Sys BP: 157 mmHg Max Pred HR: 155 bpm % Max Pred HR: 82 % Target HR: 132 bpm Max RPP: 19,939 bpm*mmHg Termination Reason: Completed protocol Total Time: 1 min : 0 sec Rest Pool BP: 89 mmHg Peak Pool BP: 78 mmHg Total Dose: 0.4 mg Resting ECG Sinus rhythm with right bundle branch block. Stress ECG No ST segment abnormalities seen following Lexiscan infusion. Report Signatures
--- NOTE | 2023-09-13 16:14 | PM.DS ---
DS: Admitting Diagnosis Discharge Date 09/13/23 Admitting Diagnosis Chest pain Diabetes mellitus type 2 Essential hypertension Mixed hyperlipidemia DS: Discharge Diagnosis Discharge Diagnosis (1) Chest pain: Qualifiers: Chest pain type: unspecified Qualified Code(s): R07.9 - Chest pain, unspecified Code(s): R07.9 - Chest pain, unspecified Status: Acute (2) Diabetes mellitus, type 2: Qualifiers: Diabetes mellitus usp insulin use: without usp use Code(s): E11.9 - Type 2 diabetes mellitus without complications Status: Acute (3) Essential (primary) hypertension: Code(s): I10 - Essential (primary) hypertension Status: Acute (4) Mixed hyperlipidemia: Code(s): E78.2 - Mixed hyperlipidemia Status: Acute DS: Summary Hospital Course Reason for hospitalization: Chest pain Diabetes mellitus type 2 Essential hypertension Mixed hyperlipidemia Hospital Course: Interval history: This is a 63-year-old female who presented to the hospital on 09/12/2023 with complaint of chest pain.? Patient had a 15 minute episode of substernal chest pain that resolved without intervention.? Workup in the hospital included a chest x-ray which was negative.? A chest CTA which was negative for PE.? She had a Lexiscan stress test done today which did not show any definitive ischemia or infarct, her LV systolic function was normal with an estimated EF of greater than 70%. Labs today were essentially normal. Troponin x3 was negative. She denies any further chest pain at this time. 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 Final diagnosis: Stable angina Status at Discharge Cognitive/behavioral status at discharge: Alert oriented x4 Functional status at discharge: independent ambulation Overall status at discharge: patient is progressing back to baseline Time Spent with Patient Time attestation: Total time spent providing and/or coordinating discharge services: Time spent: Greater than 30 minutes Exam Narrative: General: In no acute distress, well nourished Head: atraumatic, no encephalopathy Eyes: EOMI, PERRLA, sclera clear ENT: moist mucous membranes, nasal passages clear Neck: supple, no JVD, no adenopathy, trachea midline Cardiac: Normal S1 and S2. RRR, No murmur, gallops or friction rubs, peripheral pulses intact. Respiratory: Lungs clear to auscultation, no adventitious lung sounds, currently on room air Gastrointestinal: soft, non-distended, non-tender, normoactive bowel sounds. : voiding without difficulty. Extremities: moves all extremities well, no edema, good ROM, strength 5/5 Skin: clean, dry, intact. No wounds or lesions. Neuro: Alert and oriented x4, cranial nerves intact, no neuro deficits. Psych: normal mood, normal affect, interactive DS: Data Data Completed and Pending Completed studies during hospitalization: Chest x-ray Chest CTA Echo Pending studies at discharge: None Labs on day of discharge: Labs from last 24 hours 09/13/23 09/13/23 09/13/23 11:57 08:11 05:27 WBC 5.5 RBC 4.84 Hgb 14.9 Hct 45.6 MCV 94.2 MCH 30.8 MCHC 32.7 RDW 13.4 Plt Count 191 MPV 10.5 H Immature Gran % (Auto) 0.2 Neut % (Auto) 43.8 L Lymph % (Auto) 37.5 [place] % (Auto) 9.6 H Eos % (Auto) 8.0 H Baso % (Auto) 0.9 Lymph # (Auto) 2.06 [place] # (Auto) 0.5 Eos # (Auto) 0.4 H Baso # (Auto) 0.1 Abs Immat Gran (auto) 0.01 Absolute Neuts (auto) 2.4 Absolute Nucleated RBC 0.000 Nucleated RBC % 0.0 Sodium 141 Potassium 3.8 Chloride 109 H Carbon Dioxide 25 Anion Gap 7 BUN 13 Creatinine 0.60 L Estim Creat Clear Calc 72 Estimated GFR > 60 Glucose 108 POC Capillary Glucose 102 112 H Hemoglobin A1c Calcium 9.1 Magnesium 2.0 Total Bilirubin 0.7 AST 29 ALT 38 H
== END 2023-09-13 16:30 | disposition home or self-care (01) ==
LOC: ANHED 14:20 → ANH3MED 18:20
PROVIDERS: Nurse Practitioner; Student in an Organized Health Care Education/Training Program; Admitting Provider Family Medicine; Emergency Provider Physician Assistant; PCP Family Medicine; Visit Provider Nurse Practitioner Acute Care
DX: R07.9 Chest pain, unspecified (principal); E11.9 Type 2 diabetes mellitus without complications; I10 Essential (primary) hypertension; E78.2 Mixed hyperlipidemia; L64.9 Androgenic alopecia, unspecified; I37.1 Nonrheumatic pulmonary valve insufficiency; Z85.42 Personal history of malignant neoplasm of other parts of uterus; E66.9 Obesity, unspecified; Z68.32 Body mass index [BMI] 32.0-32.9, adult; Z79.84 Long term (current) use of oral hypoglycemic drugs; Z79.82 Long term (current) use of aspirin
CPT/HCPCS: 36415; 71046; 71275; 78452; 80053; 80061; 82948; 83036; 83690; 83735; 84484; 85025; 85380; 85610; 85730; 93005; 93017; 96372; 96374; 99285; A9270; A9502; C8929; G0378; J1650; Q9957; Q9967

== ENCOUNTER 2023-10-11 07:59 | Outpatient (CLI) | payer MEDICARE, SELFPAY ==
[2023-10-11 12:54] LABS: Albumin Level 4.8 g/dL (3.5-5.1); Anion Gap 7 mmol/L (4-12); Blood Urea Nitrogen 11 mg/dL (7-17); Calcium 9.8 mg/dL (8.4-10.2); Carbon Dioxide 32 mmol/L (22-30); Chloride 106 mmol/L (98-107); Creatine Kinase 66 U/L (30-135); Estimated Glomerular Filt Rate > 60; Glucose 106 mg/dL (65-110); Phosphorus 3.9 mg/dL (2.5-4.5); Potassium 5.3 mmol/L (3.4-5.0); Sodium 145 mmol/L (137-145)
== END 2023-10-11 08:00 | disposition home or self-care (01) ==
PROVIDERS: Nurse Practitioner Family; PCP Family Medicine; Visit Provider Internal Medicine Nephrology
DX: E87.5 Hyperkalemia (principal); E78.5 Hyperlipidemia, unspecified; E11.9 Type 2 diabetes mellitus without complications
CPT/HCPCS: 36415; 80069; 82550; 83036

== ENCOUNTER 2024-02-05 07:56 | Outpatient (CLI) | payer MEDICARE, SELFPAY ==
[2024-02-05 13:16] LABS: Cholesterol 230 mg/dL (0-200); HDL Direct 73 mg/dL; Triglycerides 147 mg/dL (<150)
[2024-02-05 13:27] LABS: Anion Gap 12 mmol/L (4-12); Blood Urea Nitrogen 13 mg/dL (7-17); Calcium 9.7 mg/dL (8.4-10.2); Carbon Dioxide 27 mmol/L (22-30); Chloride 105 mmol/L (98-107); Estimated Glomerular Filt Rate > 60; Glucose 98 mg/dL (65-110); LDL Cholesterol Direct 111 mg/dL; Potassium 3.8 mmol/L (3.4-5.0); Sodium 144 mmol/L (137-145)
[2024-02-05 13:43] LABS: Creatinine Urine 101.4 mg/dL
[2024-02-05 13:47] LABS: Microalbumin Urine Random 9.1 mg/L (0-16.7)
[2024-02-05 13:51] LABS: Vitamin D 25 Hydroxy 76.6 ng/mL
[2024-02-05 14:04] LABS: Thyroid Stimulating Hormone Reflex 0.669 uIU/mL (0.465-4.68)
[2024-02-05 14:18] LABS: Hepatitis C Virus Antibody Negative (Negative)
[2024-02-05 14:39] LABS: Hemoglobin A1C 6.5 % (<5.7)
== END 2024-02-05 07:57 | disposition home or self-care (01) ==
PROVIDERS: Internal Medicine Nephrology; PCP Family Medicine; Visit Provider Nurse Practitioner Family
DX: E11.9 Type 2 diabetes mellitus without complications (principal); Z11.59 Encounter for screening for other viral diseases; E78.2 Mixed hyperlipidemia; E55.9 Vitamin D deficiency, unspecified; E87.5 Hyperkalemia; I11.0 Hypertensive heart disease with heart failure; I50.9 Heart failure, unspecified
CPT/HCPCS: 36415; 80048; 80061; 82043; 82306; 83036; 84443; 86803

== ENCOUNTER 2024-04-17 07:54 | Outpatient (CLI) | payer MEDICARE, SELFPAY ==
[2024-04-17 15:39] LABS: Albumin Level 4.4 g/dL (3.5-5.1); Anion Gap 2 mmol/L (4-12); Blood Urea Nitrogen 13 mg/dL (7-17); Calcium 9.6 mg/dL (8.4-10.2); Carbon Dioxide 33 mmol/L (22-30); Chloride 107 mmol/L (98-107); Estimated Glomerular Filt Rate > 60; Glucose 106 mg/dL (65-110); Phosphorus 3.8 mg/dL (2.5-4.5); Potassium 4.4 mmol/L (3.4-5.0); Sodium 142 mmol/L (137-145)
== END 2024-04-17 07:55 | disposition home or self-care (01) ==
LOC: ANHGOSHLAB 07:56
PROVIDERS: PCP Family Medicine; Visit Provider Internal Medicine Nephrology
DX: E87.5 Hyperkalemia (principal)
CPT/HCPCS: 36415; 80069

== ENCOUNTER 2024-05-06 07:54 | Outpatient (CLI) | payer MEDICARE, SELFPAY ==
[2024-05-06 21:28] LABS: Hemoglobin A1C 6.8 % (<5.7)
--- OUTSIDE RECORDS SUMMARY | 2024-05-07 21:27 | XMS_ITS | Encounter Summary ---
Author Organization [facility] Address [address] [facility] [address] [facility] [address] [place] [id number] Care Team Providers Care Laboratory Animal Care Veterinarian Name Role Phone Andrea Abernathy MD Primary Care Provider [phone] Marcin Chou DO Unavailable Encounter Details Date Type Department Care Team (Late st Contact Info) Description 04/11/2016 Orders Only [facility] ProviderFlaquita MD [address] [place], [place] [id number] Social History Tobacco Use Types Packs/Day Years Used Date Smoking Tobacco: Never Assessed Comments Unknown Sex and Gender Information Value Date Recorded Sex Assigned at Not on file Legal Sex Female 3:19 AM [employer] Gender Identity Not on file Sexual Orientation Not on file documented as of this encounter Plan of Treatment Not on file documented as of this encounter Procedures Procedure Name Priority Date/Time Associated Diagnosis Comments CARDIOLOGY REPORT 04/11/2016 documented in this encounter Results * CARDIOLOGY REPORT (04/11/2016) Anatomical Region Laterality Modality Other Narrative 04/11/2016 Ordered by an unspecified provider. Historical Provider [facility] [place] [facility] Final Result documented in this encounter Visit Diagnoses Not on filedocumented in this encounter Additional Health Concerns Infection Onset Date Last Indicated Resolved Time COVID: Suspected 01/12/2020 01/12/2020 01/12/2020 9:16 PM CDT Respiratory Infection (NAIMA), contact + droplet Comment:Automatically added due to negative COVID-19 result. 01/12/2020 01/12/2020 01/26/2020 3:0 7 AM CDT COVID: Suspected 03/28/2021 03/28/2021 03/28/2021 2:45 PM [employer] documented as of this encounter Care Teams Laboratory Animal Care Veterinarian Relationship Specialty Start Date End Date Andrea Abernathy MD PCP - General 10/12/13 Marcin Chou DO [address] [facility] [id number] [place] [address] Referring Physician Obstetrics and Gynecology 12/11/19 documented as of this encounter
--- OUTSIDE RECORDS SUMMARY | 2024-05-07 21:27 | XMS_ITS | Clinical Summary ---
Author Organization [facility] [address] Address [address] [place] [address] Care Team Providers Care Sanitation Tank Washer Name Role Phone Andrea Abernathy MD Primary Care Provider [phone] [phone] Hase Taranmitzi DO Unavailable Allergies No known active allergies Medications aspirin (ASPIR-81) 81 mg tablet take 1 tablet by oral route every day 0 0 7 Active multivitamin tablet tablet take 1 tablet by oral route every day with food 0 0 7 Active Additional Information Patient taking differently: 2 tablet Every morning, gummies, Indications: Vitamin Deficiency Prevention, Reported on 01/12/2020 amLODIPine (NORVASC) 10 mg tablet 1 tablet (10 mg total) daily. 90 tablet 3 8 Active cholecalciferol (VITAMIN D-3) 50,000 unit capsuleIndicati ons:Vitamin D Deficiency Take 1 capsule (50,000 Units total) by mouth Every 2 weeks Active metFORMIN (GLUCOPHAGE) 500 mg tabletIndicatio ns:type 2 diabetes mellitus nightly Active atorvastatin (LIPITOR) 40 mg tablet TAKE 1 TABLET BY MOUTH ONCE DAILY AT NIGHT 90 tablet 3 Active Additional Information Patient not taking.Reported on 10/09/2023 Jardiance 25 mg tablet Take 1 tablet (25 mg total) by mouth daily 3 Active carvediloL (COREG) 6.25 mg tablet TAKE 1 TABLET BY MOUTH TWICE DAILY WITH MEALS 180 tablet 3 4 Active Active Problems Problem Noted Date Diagnosed Date Osteoarthritis of knee 02/08/2020 Radiotherapy follow-up 02/08/2020 Endometrial cancer (CMS/HCC) 12/23/2019 Morbid obesity 12/23/2019 Right fascicular block 04/17/2016 Overview (07/19/2016): Right bundle branch block Preoperative state 04/17/2016 Overview (07/19/2016): Pre-operative cardiovascular examination Essential hypertension 04/17/2016 Overview (07/19/2016): Essential hypertension Immunizations Name Administration Dates Next Due Influenza, Quadrivalent, Split, Intramuscular Influenza, Quadrivalent, Spl it, Preservative Free, Intramuscular 02/10/2019,02/19/2018 Influenza, Trivalent, IM (MDV) 05/15/2013 Surgical History Surgery Date Site/Laterality Comments CHOLECYSTECTOMY 04/15/2009 - 04/14/2010 TUBAL LIGATION 04/15/1985 - 04/14/1986 REPLACEMENT TOTAL KNEE 10/2017, 2017 Bilateral 10/2017 Left; 2017 Right DILATION AND CURETTAGE OF UTERUS 11/14/2019 - 12/14/2019 BREAST BIOPSY Right Benign SKIN LESION EXCISION 04/15/1965 - 04/14/1966 Benign mole lower back COLONOSCOPY 04/15/2014 - 04/14/2015 HYSTERECTOMY HYSTERECTOMY W/ BILATERAL SALPINGOOPHORECTOMY 01/26/2020 Bilateral JOINT REPLACEMENT 2016 and 2018 BLADDER SURGERY 2010 remove gal bladder Medical History Medical History Date Comments Diabetes mellitus (HCC) Dxd 2019 Hypertension Dxd ~2000 Palpitation History of TIA (transient is chemic attack) 2010 Per pt, TIA manifested as tr ansient dizziness in middle of night. Cancer (CMS/HCC) (HCC) Stroke (HCC) 2010 Family History Medical History Relation Name Comments Other Father Bypass Surgery; Cause of : Bypass Surgery Heart disease Mother Alexa Cardiovascular disease; Cause of : Cardiovascular disease Anesthesia problems Neg Hx Relation Name Status Comments Father Mother Alexa Social History Tobacco Use Types Packs/Day Years Used Date Smoking Tobacco: Never Smokeless Tobacco: Never Tobacco Cessation:Counseling Given: Not Answered Alcohol Use Standard Drinks/Week Comments Not Currently 0 (1 standard drink = 0.6 oz pur e alcohol) Rare Comments No Sex and Gender Information Value Date Recorded Sex Assigned at Not on file Legal Sex Female 3:19 AM DRAMATIC DIRECTOR Gender Identity Not on file Sexual Orientation Not on file Obstetrics History Para Term AB IAB SAB Ectopic Multiple Livin g Live Births 2 2 2 2 2 Date Outcome GA Total Labor Labor/2nd/3rd Weight Sex Type Anes PTL Stephany A1 A5 Name Clin Term Term Last Filed Vital Signs Vital Sign Reading Time Taken Comments Blood Pressure 138/84 10/09/2023 8:53 AM CDT Pulse 84 10/09/2023 8:53 AM CDT Temperature 36.8 ??C (98.3 ??F) 05/22/2023 1 0:09 AM DRAMATIC DIRECTOR Respiratory Rate 16 05/22/2023 10:0 9 AM DRAMATIC DIRECTOR Oxygen Saturation 94% 10/09/2023 8:53 AM CDT Inhaled Oxygen Concentration - - Weight 75.7 kg (166 lb 12.8 oz) 10/09/2023 8:53 AM CDT Height 154.9 cm (5' 1 ) 10/09/2023 8:53 AM CDT Body Mass Index 31.52 10/09/2023 8:53 AM CDT Plan of Treatment Health Maintenance Due Date Last Done Comments Albumin Creatinine Ratio, Urine 1958 Colon Cancer Screening-Colonoscopy 1958 Depression Screening 1958 Hepatitis C Screening 1958 Osteoporosis Screening-Bone Density Scan 1958 Dilated Eye Exam 1958 Foot Exam 1958 Pneumococcal vaccine 65+ (1 of 2 - PCV) 1964 DTaP/Tdap/Td Vaccine (1 - Tdap) 1969 Hepatitis B Screening 1976 Zoster Vaccine (1 of 2) 2008 Hemoglobin A1C 07/11/2020 01/12/2020 eGFR 01/18/2021 01/19/2020, 05/17/2017 Fall Risk Assessment 01/25/2021 01/26/2020 Well Visit 65+ 2023 Breast Cancer Screening-Mammogram 05/30/2023 05/30/2022, 04/19/2021, 01/12/2020 Influenza Vaccine (#1) 2023 9, 02/19/2018, 02/02/2016, Additional history exists Lipid Panel 10/08/2024 10/09/2023, /11/2022, 04/24/2022, Additional history exists Procedures Procedure Name Priority Date/Time Associated Diagnosis Comments POCT LIPID PANEL Routine 10/09/2023 8:55 AM CDT Hyperlipidemia associated with type 2 diabetes mellitus (HCC) SCREENING MAMMOGRAM BILATERAL W MARTIR Schedule Routine, Read Routine (OP Routine) 05/30/2022 9:13 AM DRAMATIC DIRECTOR Screening mammogram, encounter for BASIC METABOLIC PANEL Routine 01/19/2020 8:04 AM CDT Hypokalemia POCT HEMOGLOBIN A1C Routine 01/12/2020 11:50 AM CDT from Last 3 Months or Most Recently Relevant to Health Maintenance Results * POCT lipid panel (10/09/2023 8:55 AM CDT) Capillary blood 10/09/2023 8 :55 AM CDT Rogers Diego MD POINT OF CARE TEST ORDERABLES Fi nal Result * Screening Mammogram Bilateral W Martir (05/30/2022 9:13 AM DRAMATIC DIRECTOR) Anatomical Region Laterality Modality Breast Bilateral Mammography Narrative 05/31/2022 10:11 AM DRAMATIC DIRECTOR Mammogram Technique: Bilateral Digital Breast Tomosynthesis, Bilateral C-view 2D Screening mammogram. ??Views obtained: ??bilateral craniocaudal and bilateral mediolateral oblique. ??Computer Aided Detection was performed. Mammogram Findings: The present examination has been compared to prior imaging studies performed at [facility] on 01/12/2020 and 04/19/2021, and at [facility] on 02/21/2018. There are scattered areas of fibroglandular density. There is no suspicious abnormality in either breast. Impression: There is no mammographic evidence of malignancy. Annual screening mammography is recommended. OVERALL FINAL ASSESSMENT: BI-RADS CATEGORY 1: ??Negative. Procedure Note Malena Ellis MD - 05/31/2022 Mammogram Technique: Bilateral Digital Breast Tomosynthesis, Bilateral C-view 2D Screening mammogram. Views obtained: bilateral craniocaudal and bilateral mediolateral oblique. Computer Aided Detection was performed. Mammogram Findings: The present examination has been compared to prior imaging studies performed at [facility] on 01/12/2020 and 04/19/2021, and at [facility] on 02/21/2018. There are scattered areas of fibroglandular density. There is no suspicious abnormality in either breast. Impression: There is no mammographic evidence of malignancy. Annual screening mammography is recommended. OVERALL FINAL ASSESSMENT: BI-RADS CATEGORY 1: Negative. Self Screening Mammogram IMG MAMMO PROCEDURES Fi nal Result * (ABNORMAL) Basic metabolic panel (01/19/2020 8:04 AM CDT) Glucose 116(H) 65 - 99 mg/dL [facility] - 01 BUN 21 8 - 27 mg/dL [facility] - 01 Creatinine, Serum 0.75 0.57 - 1.00 mg/dL [facility] - 01 eGFR If NonAfricn Am 86 >59 mL/min/1.7 3 [facility] - 01 eGFR If Africn Am 99 >59 mL/min/1.7 3 [facility] - 01 BUN/creat ratio 28 12 - 28 [facility] - 01 Sodium 141 134 - 144 mmol/L [facility] - 01 Potassium, sr 4.0 3.5 - 5.2 mmol/L [facility] - 01 Chloride 98 96 - 106 mmol/L [facility] - 01 CO2 29 20 - 29 mmol/L [facility] - 01 Calcium 10.2 8.7 - 10.3 mg/dL [facility] - 01 Blood specimen (specimen) 01/19/2020 8:04 AM CDT 01/19/2020 Narrative [facility] - 01/20/2020 7:08 AM CDT Performed at: ??01 - [facility] [address] ??[id number] Facility Rehab Director: Parminder Colin PhD, Phone: ??[phone] Hanna Jiang DIE MAKER APPRENTICE LAB BLOOD ORDERABLES Louise l Result Performing Organization Address City/[facility] Co de Phone Number [facility] - 01 * (ABNORMAL) POCT hemoglobin A1c (01/12/2020 11:50 AM CDT) Hgb A1C, POC 7.1(H) 4.0 - 6.0 % [facility] Est Average Gluc POC 157 mg/dL [facility] Comment: The ADA recommends reporting an estimated Average Glucose (eAG) with all Hemoglobin A1c results using the equation derived from a study of 507 normal and diabetic adults. ??Minority populations were underrepresented and children were not included. ?? (Diabetes Care 31:7412-8444, 2007). ??The eAG is not equivalent to a fasting glucose. Blood specimen (specimen) 01/12/2020 11:50 AM CDT 01/12/2020 11:50 AM CDT [facility] Marcin Carranza MD POINT OF CARE TEST ORDER VLADISLAV Final Result Performing Organization Address [facility] de Phone Number [facility] Department of Laboratories [place] [phone] from Last 3 Months or Most Recently Relevant to Health Maintenance Insurance [facility] CHOICE PLUS [facility] HMO/[place]: [place] [address] COMMERCIAL GENERIC MEDICARE [facility] GENERIC AETNA MEDICARE GOLD Care Teams Sanitation Tank Washer Relationship Specialty Start Date End Date Andrea Abernathy MD PCP - General 10/12/13 Marcin Chou DO [address] [facility] [id number] [place] [address] Referring Physician Obstetrics and Gynecology 12/11/19
--- OUTSIDE RECORDS SUMMARY | 2024-05-07 21:27 | XMS_ITS | Clinical Summary ---
Author Organization [facility] Address [address] [place] [address]. [place], [place] [address] [place] [address] Care Team Providers Care Bench Jeweler Name Role Phone Unavailable Primary Care Provider Unavailabl e Social History Tobacco Use Types Packs/Day Years Used Date Smoking Tobacco: Never Assessed Comments Unknown Sex and Gender Information Value Date Recorded Sex Assigned at Not on file Legal Sex Female 7:55 PM CDT Gender Identity Not on file Sexual Orientation Not on file Plan of Treatment Health Maintenance Due Date Last Done Comments Colorectal Cancer Screening Colonoscopy (10 Years) 1958 Hepatitis C 1976 DTaP, Tdap and Td Vaccines ( 1 - Tdap) 1977 Mammogram Screening 1998 Zoster Vaccines (1 of 2) 2008 Dexa Scan (General) 2023 Pneumococcal Vaccine: 65+ Ye ars (1 of 1 - PCV) 2023 COVID-19 Vaccine ( - 2023-2 5 season) 2023 Influenza Adult (#1) 2024 RSV Immunization or 60+ Years (1 - 1-dose 75+ series) 2033 Meningococcal Vaccine Aged Out No allyn dina eligible based on patient's age to complete this topic Pneumococcal Vaccine: Pediat rics (0 to 5 Years) and At-Risk Patients (6 to 64 Years) Aged Out No longer eligible b ased on patient's age to complete this topic RSV Immunizations Under 20 Months Aged Out No longer eligible based on patient's age to complete this topic
--- OUTSIDE RECORDS SUMMARY | 2024-05-07 21:27 | XMS_ITS | Referral Summary ---
Author Organization [facility] [address] Address [address] [place] [address] Care Team Providers Care Rn Plastics Name Role Phone Andrea Abernathy MD Primary Care Provider [phone] [phone] Hase Taranmitzi DO Unavailable Allergies No known [...] Intramuscular 02/10/2019,02/19/2018 Influenza, Trivalent, IM (MDV) 05/15/2013 Social History Tobacco Use Types Packs/Day Years Used Date Smoking Tobacco: Never Smokeless Tobacco: Never Tobacco Cessation:Counseling Given: Not Answered Alcohol Use Standard Drinks/Week Comments Not Currently 0 (1 standard drink = 0.6 oz pur e alcohol) Rare Comments No Sex and Gender Information Value Date Recorded Sex Assigned at Not on file Legal Sex Female 3:19 AM FOUR SLIDE MACHINE SETTER Gender Identity Not on file Sexual Orientation Not on file Last Filed Vital Signs Vital Sign Reading Time Taken Comments Blood Pressure 138/84 10/09/2023 8:53 AM CDT Pulse 84 10/09/2023 8:53 AM CDT Temperature 36.8 ??C (98.3 ??F) 05/22/2023 1 0:09 AM FOUR SLIDE MACHINE SETTER Respiratory Rate 16 05/22/2023 10:0 9 AM FOUR SLIDE MACHINE SETTER Oxygen Saturation 94% 10/09/2023 8:53 AM CDT Inhaled Oxygen Concentration - - Weight 75.7 kg (166 lb 12.8 oz) 10/09/2023 8:53 AM CDT Height 154.9 cm (5' 1 ) 10/09/2023 8:53 AM CDT Body Mass Index 31.52 10/09/2023 8:53 AM CDT Plan of Treatment Not on file Procedures Procedure Name Priority Date/Time Associated Diagnosis Comments POCT LIPID PANEL Routine 10/09/2023 8:55 AM CDT Hyperlipidemia associated with type 2 diabetes mellitus (HCC) SCREENING MAMMOGRAM BILATERAL W MARTIR Schedule Routine, Read Routine (OP Routine) 05/30/2022 9:13 AM FOUR SLIDE MACHINE SETTER Screening mammogram, encounter for BASIC METABOLIC PANEL [...] Mammogram Bilateral W Martir (05/30/2022 9:13 AM FOUR SLIDE MACHINE SETTER) Anatomical Region Laterality Modality Breast Bilateral Mammography Narrative 05/31/2022 10:11 AM FOUR SLIDE MACHINE SETTER Mammogram Technique: Bilateral Digital Breast Tomosynthesis, Bilateral C-view 2D Screening mammogram. ??Views obtained: ??bilateral craniocaudal and bilateral mediolateral oblique. ??Computer Aided Detection was performed. Mammogram Findings: The present examination has been compared to prior imaging studies performed at [facility] on 01/12/2020 and 04/19/2021, and at [facility] on 02/21/2018. There are scattered areas [...] compared to prior imaging studies performed at [facility] on 01/12/2020 and 04/19/2021, and at [facility] on 02/21/2018. There are scattered areas of [...] AM CDT Performed at: ??01 - [facility] [address] ??[id number] [address] Judge: Parminder Colin PhD, Phone: ??[phone] Hanna Jiang NP LAB BLOOD ORDERABLES Louise l Result [facility] - 01 * (ABNORMAL) POCT hemoglobin A1c (01/12/2020 11:50 AM CDT) Hgb A1C, POC 7.1(H) 4.0 - 6.0 % [facility] Est Average Gluc POC 157 mg/dL [facility] Comment: The ADA recommends reporting an estimated Average Glucose (eAG) with all Hemoglobin A1c results using the equation derived from a study of 507 normal and diabetic adults. ??Minority populations were underrepresented and children were not included. ?? (Diabetes Care 31:2510-7870, 2007). ??The eAG is not equivalent to a fasting glucose. Blood specimen (specimen) 01/12/2020 11:50 AM CDT 01/12/2020 11:50 AM CDT us Premla Marcin Carranza MD POINT OF CARE TEST ORDER VLADISLAV Final Result Performing Organization Address City/State/[facility] Co de Phone Number [facility] One [facility] [place] [address] from Last 3 Months or Most Recently Relevant to Health Maintenance Insurance [facility] CHOICE PLUS [facility] HMO/PPO Address: [place] [phone] [place] [address] COMMERCIAL GENERIC MEDICARE [facility] COMMERCIAL GENERIC AETNA MEDICARE GOLD Care Teams Rn Plastics Relationship Specialty Start Date End Date Andrea Abernathy MD PCP - General 10/12/13 Marcin Chou DO [address] [facility] [id number] [place] [address] Referring Physician Obstetrics and Gynecology 12/11/19
== END 2024-05-06 07:55 | disposition home or self-care (01) ==
LOC: ANHGOSHLAB 07:55
PROVIDERS: PCP Family Medicine; Visit Provider Nurse Practitioner Family
DX: E11.9 Type 2 diabetes mellitus without complications (principal)
CPT/HCPCS: 36415; 83036

== ENCOUNTER 2024-05-13 08:05 | Outpatient (CLI) | payer MEDICARE, SELFPAY ==
--- NOTE | ~2024-05-13 | US_ITS ---
EXAMINATION: US soft tissue head and neck DATE: 05/13/2024 08:21 INDICATION: Right neck lump. TECHNIQUE: Multiple grayscale and Doppler ultrasound images of the head and neck were obtained. COMPARISON: None FINDINGS: There are normal lymph nodes in the right neck in the patient's area of concern. IMPRESSION: 1. No abnormal mass or lymphadenopathy in the patient's area of concern in right neck. Reviewed, dictated and finalized at location A. T ACCOUNTS SUPERVISOR IMPRESSION: 1. No abnormal mass or lymphadenopathy in the patient's area of concern in righ t neck.
== END 2024-05-13 08:06 | disposition home or self-care (01) ==
LOC: GOSHIMG 08:06
PROVIDERS: PCP Family Medicine; Visit Provider Nurse Practitioner Family
DX: R22.1 Localized swelling, mass and lump, neck (principal)
CPT/HCPCS: 76536

== ENCOUNTER 2024-05-16 10:50 | Emergency (ER) | payer MEDICARE, SELFPAY ==
--- NOTE | ~2024-05-16 | XR_ITS ---
EXAMINATION: XR chest 2V DATE: 05/16/2024 11:16 INDICATION: Chest pain. TECHNIQUE: Frontal and lateral views of the chest were obtained. COMPARISON: Chest 2 views 09/12/2023 FINDINGS: There is no pneumonia, pleural effusion, or pneumothorax. The heart size is normal. Surgica l clips in the right upper quadrant are likely from cholecystectomy. IMPRESSION: 1. No acute cardiopulmonary disease. Reviewed, dictated and finalized at location A. L DIE FINISHER
--- NOTE | 2024-05-16 10:51 | ECG_ITS ---
Test Date: 2024-05-16 10:59:03 Measurements Intervals University Rate: 92 P: 32 MA: 166 QRS: -17 QRSD: 136 T: 5 QT: 372 QTc: 461 Interpretive Statements SINUS RHYTHM RIGHT BUNDLE BRANCH BLOCK LEFT VENTRICULAR HYPERTROPHY INFERIOR INFARCT, AGE INDETERMINATE BASELINE ARTIFACT- II, III, AVR, AVL, AVF, V4-V6 ABNORMAL ECG Compared to ECG 09/12/2023 14:03:18 No significant changes Electronically Signed On 05-16-2024 18:13:56 MEDICAL SCREENER by Jaydon [place] D.O.
--- OUTSIDE RECORDS SUMMARY | 2024-05-16 10:51 | XMS_ITS | Clinical Summary ---
Author Organization [facility] Address [address] [place] [address]. [place], [place] [address] [place] [address] Care Team Providers Care Pillowcase Folder Name Role Phone Unavailable Primary Care Provider [...] (1 - 1-dose 75+ series) 2033 Meningococcal B Vaccine Aged Out No l onger eligible based on patient's age to complete this topic Meningococcal Vaccine Aged Out No allyn dina [...]
[2024-05-16] MEDS: ASPIRIN 81 MG CHEWABLE TABLET 243 MG PO (11:01)
[2024-05-16 11:22] LABS: Basophils Percent Auto 0.5 % (0.2-1.2); Eosinophils Absolute Auto 0.4 K/mm3 (0-0.3); Eosinophils Percent Auto 5.5 % (0-4.4); Hematocrit 46.6 % (37.0-47.0); Hemoglobin 15.4 g/dL (12.0-15.0); Immature Granulocyte Absolute 0.01 K/mm3 (0.00-0.031); Immature Granulocyte Percent A 0.1 % (0-0.5); Lymphocytes Absolute Auto 1.99 K/mm3 (0.9-3.2); Lymphocytes Percent Auto 26.7 % (18.3-44.2); Mean Corpuscular Hemoglobin 29.7 pg (26-34); Mean Platelet Volume 10.6 fl (7.4-10.4); Monocytes Absolute Auto 0.6 K/mm3 (0.1-0.6); Monocytes Percent Auto 8.4 % (2.6-8.5); Neutrophils Absolute Auto 4.4 K/mm3 (1.3-6.7); Neutrophils Percent Auto 58.8 % (45.5-73.1); Platelet Count Result 218 k/mm3 (150-375); Red Blood Count 5.18 M/mm3 (4.2-5.4); Red Cell Distribution Width 12.4 % (11.5-14.5); White Blood Count 7.5 K/mm3 (4.5-10.0)
--- OUTSIDE RECORDS SUMMARY | 2024-05-16 11:29 | XMS_ITS | Encounter Summary ---
Author Organization [facility] Address [address] [facility] [address] [place] [address] Care Team Providers Care Fitting Room Supervisor Name Role Phone Andrea Abernathy MD Primary Care Provider [phone] [phone] Marcin Chou DO Unavailable Encounter Details Date Type Department Care Team (Late st Contact Info) Description 04/11/2016 Orders Only [facility] ProviderFlaquita MD [address] [place], [place] [id number] Social History Tobacco Use Types Packs/Day Years Used Date Smoking Tobacco: Never Assessed Comments Unknown Sex and Gender Information Value Date Recorded Sex Assigned at Not on file Legal Sex Female 3:19 AM HOSPITAL INTERNSHIP Gender Identity Not on file Sexual Orientation Not on file documented as of this encounter Plan of Treatment Not on file documented as of this encounter Procedures Procedure Name Priority Date/Time Associated Diagnosis Comments CARDIOLOGY REPORT 04/11/2016 documented in this encounter Results * CARDIOLOGY REPORT (04/11/2016) Anatomical Region Laterality Modality Other Narrative 04/11/2016 Ordered by an unspecified provider. Historical Provider [facility] [place] Final Result documented in this encounter Visit Diagnoses Not on filedocumented in this encounter Additional Health Concerns Infection Onset Date Last Indicated Resolved Time COVID: Suspected 01/12/2020 01/12/2020 01/12/2020 9:16 PM CDT Respiratory Infection (NAIMA), contact + droplet Comment:Automatically added due to negative COVID-19 result. 01/12/2020 01/12/2020 01/26/2020 3:0 7 AM CDT COVID: Suspected 03/28/2021 03/28/2021 03/28/2021 2:45 PM HOSPITAL INTERNSHIP documented as of this encounter Care Teams Fitting Room Supervisor Relationship Specialty Start Date End Date Andrea Abernathy MD PCP - General 10/12/13 Marcin Chou DO [address] [facility] [id number] [place] [address] Referring Physician Obstetrics and Gynecology 12/11/19 documented as of this encounter
--- OUTSIDE RECORDS SUMMARY | 2024-05-16 11:29 | XMS_ITS | Referral Summary ---
Author Organization [facility] [address] Address [address] [place] [address] Care Team Providers Care Surface Room Shop Optician Name Role Phone Andrea Abernathy MD Primary Care Provider [phone] [phone] Hase Taranmitzi DO Unavailable Allergies No known [...] on file Legal Sex Female 3:19 AM RELIEF PILOT Gender Identity Not on file Sexual Orientation Not on file Last Filed Vital Signs Vital Sign Reading Time Taken Comments Blood Pressure 138/84 10/09/2023 8:53 AM CDT Pulse 84 10/09/2023 8:53 AM CDT Temperature 36.8 ??C (98.3 ??F) 05/22/2023 1 0:09 AM RELIEF PILOT Respiratory Rate 16 05/22/2023 10:0 9 AM RELIEF PILOT Oxygen Saturation 94% 10/09/2023 8:53 AM CDT [...] Read Routine (OP Routine) 05/30/2022 9:13 AM RELIEF PILOT Screening mammogram, encounter for BASIC METABOLIC PANEL [...] Mammogram Bilateral W Martir (05/30/2022 9:13 AM RELIEF PILOT) Anatomical Region Laterality Modality Breast Bilateral Mammography Narrative 05/31/2022 10:11 AM RELIEF PILOT Mammogram Technique: Bilateral Digital Breast Tomosynthesis, Bilateral C-view 2D Screening mammogram. ??Views obtained: ??bilateral craniocaudal and bilateral mediolateral oblique. ??Computer Aided Detection was performed. Mammogram Findings: The present examination has been compared to prior imaging studies performed at [facility] on 01/12/2020 and 04/19/2021, and at [facility] on 02/21/2018. There are scattered [...] compared to prior imaging studies performed at [facility] on 01/12/2020 and 04/19/2021, and at [facility] on 02/21/2018. There are scattered areas of [...] AM CDT Performed at: ??01 - [facility] [address] ??[id number] Rn Post Partum: Parminder Colin PhD, Phone: ??[phone] Hanna Jiang NP LAB BLOOD ORDERABLES Louise [...] children were not included. ?? (Diabetes Care 31:5805-1925, 2007). ??The eAG is not equivalent to a fasting glucose. Blood specimen (specimen) 01/12/2020 11:50 AM CDT 01/12/2020 11:50 AM CDT us [facility] Marcin Carranza MD POINT OF CARE TEST ORDER VLADISLAV Final Result Performing Organization Address City/State/[facility] Co de Phone Number [facility] One [facility] [place] [address] from Last 3 Months or Most Recently Relevant to Health Maintenance Insurance [facility] CHOICE PLUS COMMERCIAL GENERIC MEDICARE [facility] [id number] GENERIC MEDICARE Care Teams Surface Room Shop Optician Relationship Specialty Start Date End Date Andrea Abernathy MD PCP - General 10/12/13 Marcin Chou DO [address] [facility] [id number] [place] [address] Referring Physician Obstetrics and Gynecology 12/11/19
--- OUTSIDE RECORDS SUMMARY | 2024-05-16 11:29 | XMS_ITS | Clinical Summary ---
Author Organization [facility] [address] Address [address] [place] [address] Care Team Providers Care Vp Data Name Role Phone Andrea Abernathy MD Primary Care Provider +1 [phone] Hase Taranmitzi DO Unavailable Allergies No known [...] on file Legal Sex Female 3:19 AM RESIDENTIAL DOOR UNIT INSTALLER Gender Identity Not on file Sexual Orientation [...] ??C (98.3 ??F) 05/22/2023 1 0:09 AM RESIDENTIAL DOOR UNIT INSTALLER Respiratory Rate 16 05/22/2023 10:0 9 AM RESIDENTIAL DOOR UNIT INSTALLER Oxygen Saturation 94% 10/09/2023 8:53 AM CDT [...] Read Routine (OP Routine) 05/30/2022 9:13 AM RESIDENTIAL DOOR UNIT INSTALLER Screening mammogram, encounter for BASIC METABOLIC PANEL [...] Mammogram Bilateral W Martir (05/30/2022 9:13 AM RESIDENTIAL DOOR UNIT INSTALLER) Anatomical Region Laterality Modality Breast Bilateral Mammography Narrative 05/31/2022 10:11 AM RESIDENTIAL DOOR UNIT INSTALLER Mammogram Technique: Bilateral Digital Breast Tomosynthesis, Bilateral C-view 2D Screening mammogram. ??Views obtained: ??bilateral craniocaudal and bilateral mediolateral oblique. ??Computer Aided Detection was performed. Mammogram Findings: The present examination has been compared to prior imaging studies performed at [facility] on 01/12/2020 and 04/19/2021, and at [facility] on 02/21/2018. There are scattered areas [...] compared to prior imaging studies performed at [facility] on 01/12/2020 and 04/19/2021, and at [facility] on 02/21/2018. There are scattered areas [...] AM CDT Performed at: ??01 - [facility] [address] ??[id number] Forensic Examiner: Parminder Colin PhD, Phone: ??[phone] Hanna Jiang HEALTH PROMOTION SPECIALIST LAB BLOOD ORDERABLES Louise l Result Performing Organization Address City/[facility] Co de Phone Number [facility] - 01 * (ABNORMAL) POCT hemoglobin A1c (01/12/2020 11:50 AM CDT) Hgb A1C, POC 7.1(H) 4.0 - 6.0 % [facility] Est Average Gluc POC 157 mg/dL [facility] Comment: The ADA recommends reporting an estimated Average Glucose (eAG) with all Hemoglobin A1c results using the equation derived from a study of 507 normal and diabetic adults. ??Minority populations were underrepresented and children were not included. ?? (Diabetes Care 31:1588-0028, 2007). ??The eAG is not equivalent to a fasting glucose. Blood specimen (specimen) 01/12/2020 11:50 AM CDT 01/12/2020 11:50 AM CDT [facility] Marcin Carranza MD POINT OF CARE TEST ORDER VLADISLAV Final Result Performing Organization Address [facility] de Phone Number [facility] Department of Laboratories [place] [phone] from Last 3 Months or Most Recently Relevant to Health Maintenance Insurance [facility] CHOICE PLUS COMMERCIAL GENERIC MEDICARE [facility] GENER[facility] MEDIC[facility] Care Teams Vp Data Relationship Specialty Start Date End Date Andrea Abernathy MD PCP - General 10/12/13 Marcin Chou DO [address] [facility] [id number] [place] [address] Referring Physician Obstetrics and Gynecology 12/11/19
--- OUTSIDE RECORDS SUMMARY | 2024-05-16 11:29 | XMS_ITS | Clinical Summary ---
Author Organization [facility] Address [address] [place] [address]. [place], [place] [id number] [place] [address] Care Team Providers Care Port Cdl A Driver Name Role Phone Unavailable Primary Care Provider [...]
[2024-05-16 11:31] LABS: Alanine Aminotransferase 48 U/L (6-35); Albumin Level 4.5 g/dL (3.5-5.1); Alkaline Phosphatase 88 U/L (38-126); Anion Gap 12 mmol/L (4-12); Aspartate Amino Transferase 43 U/L (14-36); Bilirubin,Total 0.8 mg/dL (0.2-1.3); Blood Urea Nitrogen 15 mg/dL (7-17); Calcium 9.8 mg/dL (8.4-10.2); Carbon Dioxide 31 mmol/L (22-30); Chloride 98 mmol/L (98-107); Estimated CRCL calculation 70 ml/min; Estimated Glomerular Filt Rate > 60; Glucose 153 mg/dL (65-110); Lipase 170 U/L (23-300); Potassium 2.9 mmol/L (3.4-5.0); Sodium 141 mmol/L (137-145)
--- NOTE | 2024-05-16 11:32 | ED_ITS ---
HPI - General Adult General Chief complaint: Chest Pain Stated complaint: CHEST PAIN SINCE 1030 TODAY Time Seen by Provider: 05/16/24 11:12 History of Present Illness HPI narrative: 64-year-old female presents emergency department for an episode of chest pain. Patient does have prior history of anxiety and hypertension. Patient does take medications for her blood pressure. Patient does follow-up with cardiology and had a stress test approximately 1 year ago. Patient denies any prior history of VT. patient states she was riding in the car today when she had onset of a chest tightness. Patient states the pain did not radiate to her neck back arms. Patient denies any shortness of breath or lightheadedness associated with this. Due to the pain patient felt that she needed to be evaluated proceeded to the emergency department. Upon arrival emergency department patient states that her pain is resolved. Patient denies any current complaints. Related Data Home Medications ?Medication ?Instructions ?Recorded ?Confirmed ?Last Taken ?Type aspirin 81 mg tablet,delayed 81 mg PO DAILY 02/23/19 05/13/24 09/12/23 09:00 History release (Adult Low Dose Aspirin) carvedilol 6.25 mg tablet 6.25 mg PO BID 10/04/21 05/13/24 09/12/23 09:00 History cikgxllj-dqv-ewvyf ac 400 tablet PO 02/03/24 05/13/24 Unknown History mcg-calcium carb 500 mg-vit K1 20 mcg tablet vit C 250 mg-vit E 90 mg-zinc 40 1 tablet PO BID 05/08/24 05/13/24 Unknown History mg-copper 1 ls-drnlby-joyyem capsule (PreserVision AREDS-2) Allergies Allergy/AdvReac Type Severity Reaction Status Date / Time adhesive AdvReac Intermediate Rash Verified 05/16/24 10:50 Review of Systems 2 Review of Systems: All systems reviewed & are unremarkable except as noted in HPI and below PMFSH Past Medical History Medical History BMI 33.0-33.9,adult Retinal vein occlusion Retinal arterial branch occlusion Androgenic alopecia Hypokalemia Endometrial carcinoma Diabetes mellitus, type 2 Hypertensive encephalopathy Impaired glucose tolerance (oral) Surgical History Surgical History S/P JOHN-BSO History of hysterectomy for cancer Family History Family History Mother Family history of cardiovascular disease Family history of elevated blood lipids Hypertension Cerebrovascular accident Diabetes mellitus Father Family history of cardiovascular disease Grandparent Cerebrovascular accident Diabetes mellitus Other Family history of malignant neoplasm of breast Social History Social History Social History: Caffeine:daily Smoking status: Never smoker Second hand tobacco smoke exposure: Yes Alcohol intake: current Alcohol use details: rarely Substance use: never Substance use type: does not use Do You Feel Safe in your Home?: Yes Lack of Transportation: No Lack of Food: Never True Current Housing: I Have Housing Concerned About Future Housing: No Difficulty Paying Gas/Electric Bills: No Difficulty Paying for Meds: No Currently Unemployed: No Education: High School Diploma/GED Difficulty w/ Childcare or Family Care: No Living arrangements: with family Occupation/Education: retired 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 HEAD: normocephalic, atraumatic. EYES: PERRLA/EOMI, conjunctivae clear. NOSE: Normal no drainage EARS:TMS clear with good light reflex. THROAT: Pharynx clear, no exudate. NECK: Supple. No adenopathy, no masses. RESPIRATORY: Airway patent, respirations nonlabored. Clear to auscultation bilaterally, no rales, rhonchi, wheezing. CARDIOVASCULAR: Regular rate and rhythm without murmurs rubs or gallops. ABDOMINAL: Soft, nontender, nondistended, normal bowel sounds MUSCULOSKELETAL: Moves all extremities. Strength/ROM intact, No edema, No calf tenderness. NEURO: Alert. Cranial nerves II through XII intact. Grossly intact SKIN: Warm, dry. Normal Color Course Vital Signs Vital signs: Vital Signs Oxygen Delivery Room Air 05/16/24 13:57 Temperature 97.9 F 05/16/24 14:56 Pulse Rate 86 05/16/24 14:56 Respiratory Rate 18 05/16/24 14:56 Blood Pressure 142/87 H 05/16/24 14:56 Pulse Oximetry 99 05/16/24 14:56 Oxygen Delivery Room Air 05/16/24 13:57 Medical Decision Making MDM Narrative Medical decision making narrative: 64-year-old female presenting to the emergency department for evaluation for chest pain. Patient was chest pain-free upon arrival to the emergency department. EKG shows at old right bundle branch with normal sinus rhythm with no acute ST changes. Patient was afebrile with no leukocytosis and a stable hemoglobin of 15.4. Patient's INR was 1.0. Patient potassium was 2.9 this was replaced orally with 40 mEq p.o.. Patient did have negative serial troponins and negative serial EKGs. Chest x-ray shows no acute cardiopulmonary abnormality. Patient family were updated on the results of workup. Patient was comfortable plan for discharge and close follow-up. All questions concerns were addressed. Differential Diagnosis Differential Diagnosis: Pneumonia, pneumothorax, angina, ACS Vital Signs Vital Signs: Vital Signs Oxygen Delivery Room Air 05/16/24 13:57 Temperature 97.9 F 05/16/24 14:56 Pulse Rate 86 05/16/24 14:56 Respiratory Rate 18 05/16/24 14:56 Blood Pressure 142/87 H 05/16/24 14:56 Pulse Oximetry 99 05/16/24 14:56 Oxygen Delivery Room Air 05/16/24 13:57 Lab Data Lab results reviewed: Yes I reviewed the patient's lab results. 05/16/24 11:16 05/16/24 11:16 Labs: Lab Results 05/16/24 05/16/24 Range/Units 11:16 13:56 WBC 7.5 (4.5-10.0) K/mm3 RBC 5.18 (4.2-5.4) M/mm3 Hgb 15.4 H (12.0-15.0) g/dL Hct 46.6 (37.0-47.0) % MCV 90.0 (80-100) fl MCH 29.7 (26-34) pg MCHC 33.0 (32-36) g/dl RDW 12.4 (11.5-14.5) % Plt Count 218 (150-375) k/mm3 MPV 10.6 H (7.4-10.4) fl Immature Gran % (Auto) 0.1 (0-0.5) % Neut % (Auto) 58.8 (45.5-73.1) % Lymph % (Auto) 26.7 (18.3-44.2) % [place] % (Auto) 8.4 (2.6-8.5) % Eos % (Auto) 5.5 H (0-4.4) % Baso % (Auto) 0.5 (0.2-1.2) % Lymph # (Auto) 1.99 (0.9-3.2) K/mm3 [place]ee # (Auto) 0.6 (0.1-0.6) K/mm3 Eos # (Auto) 0.4 H (0-0.3) K/mm3 Baso # (Auto) 0.0 (0.0-0.1) K/mm3 Abs Immat Gran (auto) 0.01 (0.00-0.031) K/mm3 Absolute Neuts (auto) 4.4 (1.3-6.7) K/mm3 Absolute Nucleated RBC 0.000 (0.0-0.012) K/mm3 Nucleated RBC % 0.0 (0.0-0.2) % PT 13.4 (11.1-14.7) Seconds INR 1.0 APTT 24.1 (22.3-36.8) Seconds Sodium 141 (137-145) mmol/L Potassium 2.9 L (3.4-5.0) mmol/L Chloride 98 (98-107) mmol/L Carbon Dioxide 31 H (22-30) mmol/L Anion Gap 12 (4-12) mmol/L BUN 15 (7-17) mg/dL Creatinine 0.62 L (0.7-1.0) mg/dL Estim Creat Clear Calc 70 ml/min Estimated GFR > 60 (59 - ) Glucose 153 H (65-110) mg/dL Calcium 9.8 (8.4-10.2) mg/dL Total Bilirubin 0.8 (0.2-1.3) mg/dL AST 43 H (14-36) U/L ALT 48 H (6-35) U/L Alkaline Phosphatase 88 (38-126) U/L Troponin I < 0.012 < 0.012 (0.000-0.034) ng/mL Total Protein 8.0 (6.3-8.2) g/dL Albumin 4.5 (3.5-5.1) g/dL Lipase 170 (23-300) U/L Imaging Data Radiologist's impression: Impressions Chest X-Ray 05/16/24 11:38 IMPRESSION: 1. No acute cardiopulmonary disease. Discharge Plan Discharge Clinical Impression: Atypical chest pain Patient Disposition: Home, Self-Care Condition: Stable Instructions: Antibiotic Form, Chest Pain (ED) Additional Instructions: Have close follow-up with your primary care physician and esol teacher for additional outpatient cardiac testing. Home medications as directed. If you have any worsening symptoms then please call or return to the emergency department. Patient Language: Sinhala Prescriptions: No Action aspirin [Adult Low Dose Aspirin] 81 mg tablet,delayed release (DR/EC) 81 mg PO DAILY carvedilol 6.25 mg tablet 6.25 mg PO BID jh-xkb-wnoud-calcium carb-K1 400 mcg-500 mg calcium-20 mcg tablet PO chlorthalidone 25 mg tablet 25 mg PO DAILY Qty: 90 3RF PreserVision AREDS-2 250-90-40-1 mg capsule 1 tablet PO BID Jardiance 25 mg tablet 25 mg PO DAILY Qty: 90 1RF cholecalciferol (vitamin D3) 1,250 mcg (50,000 unit) capsule 50,000 unit PO .every 2 weeks Qty: 26 3RF atorvastatin 20 mg tablet 20 mg PO DAILY Qty: 90 2RF amlodipine 10 mg tablet See Rx Instructions .ROUTE .COMPLEX Qty: 90 1RF Dose Instruction: Take 1 tablet by mouth once daily Rx Instructions: Take 1 tablet by mouth once daily metformin 500 mg tablet See Rx Instructions .ROUTE .COMPLEX Qty: 270 0RF Dose Instruction: TAKE 1 TABLET BY MOUTH ONCE DAILY IN THE MORNING AND 2 TABLETS AT DINNER TIME Rx Instructions: TAKE 1 TABLET BY MOUTH ONCE DAILY IN THE MORNING AND 2 TABLETS AT DINNER TIME Follow-up/Referrals: Anrdea Abernathy MD [Primary Care Provider] - Quality HEART score for chest pain patients History: slightly suspicious ECG: normal Age: > or = to 65 years Risk factors: 1 or 2 risk factors Troponin: < or = to 1x normal limit Heart score: 3
[2024-05-16 11:34] LABS: Prothrombin Time 13.4 Seconds (11.1-14.7)
[2024-05-16 11:35] LABS: Partial Thromboplastin Time 24.1 Seconds (22.3-36.8)
[2024-05-16 11:43] LABS: Troponin I < 0.012 ng/mL (0.000-0.034)
[2024-05-16] MEDS: POTASSIUM CHLORIDE 20 MEQ PACKET (FOR LIQUID) 40 MEQ PO (13:09)
--- NOTE | 2024-05-16 13:28 | ECG_ITS ---
Test Date: 2024-05-16 13:53:23 Measurements Intervals [place] Rate: 81 P: 45 CA: 160 QRS: -11 QRSD: 137 T: 14 QT: 388 QTc: 453 Interpretive Statements SINUS RHYTHM RIGHT BUNDLE BRANCH BLOCK LEFT VENTRICULAR HYPERTROPHY INFERIOR INFARCT, AGE INDETERMINATE BASELINE ARTIFACT- I, II, III, AVR, AVL, AVF ABNORMAL ECG Compared to ECG 05/16/2024 10:59:03 No significant changes Electronically Signed On 05-16-2024 18:24:52 METAL BASE BLOCKER by Jaydon Maxwell D.O.
[2024-05-16 13:58] VITALS: BP 145/78; PULSE 85; RESP 17; O2SAT 97
[2024-05-16 14:24] LABS: Troponin I < 0.012 ng/mL (0.000-0.034)
[2024-05-16 14:56] VITALS: BP 142/87; PULSE 86; RESP 18; TEMP 36.6; O2SAT 99
== END 2024-05-16 15:01 | disposition home or self-care (01) ==
PROVIDERS: Emergency Medicine; Emergency Provider Emergency Medicine; PCP Family Medicine
DX: R07.89 Other chest pain (principal); I10 Essential (primary) hypertension; F41.9 Anxiety disorder, unspecified; Z79.82 Long term (current) use of aspirin; Z85.42 Personal history of malignant neoplasm of other parts of uterus; E11.9 Type 2 diabetes mellitus without complications
CPT/HCPCS: 36415; 71046; 80053; 83690; 84484; 85025; 85610; 85730; 93005; 99284; A9270

== ENCOUNTER 2024-05-29 07:54 | Outpatient (CLI) | payer MEDICARE, SELFPAY ==
--- OUTSIDE RECORDS SUMMARY | 2024-05-29 07:58 | XMS_ITS | Encounter Summary ---
Author Organization [facility] Address [address] [facility] [address] [place] [address] Care Team Providers Care Wash Test Checker Name Role Phone Andrea Abernathy MD Primary Care Provider +1 [phone] Marcin Chou DO Unavailable Encounter Details Date Type Department Care Team (Late st Contact Info) Description 04/11/2016 Orders Only [facility] ProviderFlaquita MD [address] [place], [place] [id number] Social History Tobacco Use Types Packs/Day Years Used Date Smoking Tobacco: Never Assessed Comments Unknown Sex and Gender Information Value Date Recorded Sex Assigned at Not on file Legal Sex Female 3:19 AM DIE SIZER Gender Identity Not on file Sexual Orientation [...] COVID: Suspected 03/28/2021 03/28/2021 03/28/2021 2:45 PM DIE SIZER documented as of this encounter Care Teams Wash Test Checker Relationship Specialty Start Date End Date Andrea Abernathy MD PCP - General 10/12/13 Marcin Chou DO [address] [facility] [id number] [place] [address] Referring Physician Obstetrics and Gynecology 12/11/19 documented as of this encounter
--- OUTSIDE RECORDS SUMMARY | 2024-05-29 07:58 | XMS_ITS | Clinical Summary ---
Author Organization [facility] [address] Address [address] [place] [address] Care Team Providers Care Party Director Name Role Phone Andrea Abernathy MD Primary Care Provider +1 [phone] Hase Taranmitzi DO Unavailable Allergies No known [...] WITH MEALS 180 tablet 3 4 Active chlorthalidone (HYGROTON) 25 mg tablet Take 1 tablet (25 mg total) by mouth daily 5 Active Active Problems Problem Noted Date Diagnosed Date Osteoarthritis of knee 02/08/2020 Radiotherapy follow-up 02/08/2020 Endometrial cancer (CMS/HCC) 12/23/2019 Morbid obesity 12/23/2019 Right fascicular block 04/17/2016 Overview (07/19/2016): Right bundle branch block Preoperative state 04/17/2016 Overview (07/19/2016): Pre-operative cardiovascular examination Essential hypertension 04/17/2016 Overview (07/19/2016): Essential hypertension Encounters Date Type Department Care Team Description 05/25/2024 8:00 AM BLOOD BANK LABORATORY TECHNICIAN Office Visit [facility] Obstetrics and Gynecology [address] [place] [address] Advanced Medicine [address] [place] [address] [place] [address] Cristina Pinto NP Encounter for routine cancer follow-up (Primary Dx); Endometrial cancer (CMS/HCC) (HCC) from Last 3 Months Immunizations Name Administration Dates Next Due Influenza, [...] W/ BILATERAL SALPINGOOPHORECTOMY 01/26/2020 Bilateral JOINT REPLACEMENT 2017 and 2018 BLADDER SURGERY 2010 remove gal bladder Medical History Medical History Date Comments Diabetes mellitus (HCC) Dxd 2019 Hypertension Dxd ~2000 Palpitation History of TIA (transient is chemic attack) 2009 Per pt, TIA manifested as tr ansient [...] on file Legal Sex Female 3:19 AM BLOOD BANK LABORATORY TECHNICIAN Gender Identity Not on file Sexual Orientation Not on file Obstetrics History Para Term AB IAB SAB Ectopic Multiple Livin g Live Births 2 2 2 2 2 Date Outcome GA Total Labor Labor/2nd/3rd Weight Sex Type Anes PTL Stephany A1 A5 Name Clin Term Term Last Filed Vital Signs Vital Sign Reading Time Taken Comments Blood Pressure 150/91 05/25/2024 8:13 AM BLOOD BANK LABORATORY TECHNICIAN Pulse 86 05/25/2024 8:13 AM BLOOD BANK LABORATORY TECHNICIAN Temperature 36.8 C (98.3 F) 05/25/2024 8:13 AM BLOOD BANK LABORATORY TECHNICIAN Respiratory Rate 16 05/25/2024 8:13 AM BLOOD BANK LABORATORY TECHNICIAN Oxygen Saturation 93% 05/25/2024 8:13 AM BLOOD BANK LABORATORY TECHNICIAN Inhaled Oxygen Concentration - - Weight 74.3 kg (163 lb 14.4 oz) 05/25/2024 8:13 AM BLOOD BANK LABORATORY TECHNICIAN Height 154.9 cm (5' 0.98 ) 05/25/2024 8:13 AM CS T Body Mass Index 30.98 05/25/2024 8:13 AM BLOOD BANK LABORATORY TECHNICIAN Plan of Treatment Health Maintenance Due Date [...] Additional history exists Lipid Panel 10/08/2024 10/09/2023, 03/16, 04/24/2022, Additional history exists Procedures Procedure Name Priority Date/Time Associated Diagnosis Comments POCT LIPID PANEL Routine 10/09/2023 8:55 AM CDT Hyperlipidemia associated with type 2 diabetes mellitus (HCC) SCREENING MAMMOGRAM BILATERAL W MARTIR Schedule Routine, Read Routine (OP Routine) 05/30/2022 9:13 AM BLOOD BANK LABORATORY TECHNICIAN Screening mammogram, encounter for BASIC METABOLIC PANEL [...] Mammogram Bilateral W Martir (05/30/2022 9:13 AM BLOOD BANK LABORATORY TECHNICIAN) Anatomical Region Laterality Modality Breast Bilateral Mammography Narrative 05/31/2022 10:11 AM BLOOD BANK LABORATORY TECHNICIAN Mammogram Technique: Bilateral Digital Breast Tomosynthesis, Bilateral C-view 2D Screening mammogram. Views obtained: bilateral craniocaudal and bilateral mediolateral oblique. Computer Aided Detection was performed. Mammogram Findings: The present examination has been compared to prior imaging studies performed at [facility] on 01/12/2020 and 04/19/2021, and at [facility] on 02/21/2018. There are scattered areas of fibroglandular density. There is no suspicious abnormality in either breast. Impression: There is no mammographic evidence of malignancy. Annual screening mammography is recommended. OVERALL FINAL ASSESSMENT: BI-RADS CATEGORY 1: Negative. Procedure Note Malena Ellis MD - 05/31/2022 Mammogram Technique: Bilateral Digital Breast Tomosynthesis, Bilateral C-view 2D Screening mammogram. Views obtained: bilateral craniocaudal and bilateral mediolateral oblique. Computer Aided Detection was performed. Mammogram Findings: The present examination has been compared to prior imaging studies performed at [facility] on 01/12/2020 and 04/19/2021, and at [facility] on 02/21/2018. There are scattered areas of fibroglandular density. There is no suspicious abnormality in either breast. Impression: There is no mammographic evidence of malignancy. Annual screening mammography is recommended. OVERALL FINAL ASSESSMENT: BI-RADS CATEGORY 1: Negative. us Self Screening Mammogram IMG MAMMO PROCEDURES Fi [...] - 01/20/2020 7:08 AM CDT Performed at: - [address] [id number] Home Specialist: Parminder Colin PhD, Phone: [phone] Hanna Jiang NP LAB BLOOD ORDERABLES Louise l Result [facility] - 01 * (ABNORMAL) POCT hemoglobin A1c (01/12/2020 11:50 AM CDT) [facility] Hgb A1C, POC 7.1(H) 4.0 - 6.0 % [facility] Est Average Gluc POC 157 mg/dL [facility] Comment: The ADA recommends reporting an estimated Average Glucose (eAG) with all Hemoglobin A1c results using the equation derived from a study of 507 normal and diabetic adults. Minority populations were underrepresented and children were not included. (Diabetes Care 31:9273-4989, 2008). The eAG is not equivalent to a fasting glucose. Blood specimen (specimen) 01/12/2020 11:50 AM CDT 01/12/2020 11:50 AM CDT Romaine Carranza MD POINT OF CARE TEST ORDER VLADISLAV Final Result [facility] [place] [address] from Last 3 Months or Most Recently Relevant to Health Maintenance Insurance [facility] CHOICE PLUS [facility] HMO/PPO Address: [address] [address] [place] [address] [place] [address] MEDICARE [facility] COMMERCIAL GENERIC MEDICARE Care Teams Party Director Relationship Specialty Start Date End Date Andrea Abernathy MD PCP - General 10/12/13 Marcin Chou DO [address] [facility] [id number] [place] [address] Referring Physician Obstetrics and Gynecology 12/11/19
--- OUTSIDE RECORDS SUMMARY | 2024-05-29 07:58 | XMS_ITS | Clinical Summary ---
Author Organization [facility] Address [address] [place] [address] Care Team Providers Care Eyeglass Fitter Name Role Phone Unavailable Primary Care Provider [...]
--- OUTSIDE RECORDS SUMMARY | 2024-05-29 07:58 | XMS_ITS | Referral Summary ---
Author Organization [facility] [address] Address [address] [place] [address] Care Team Providers Care Psychiatric Rn Name Role Phone Andrea Abernathy MD Primary Care Provider +1 [phone] Effie Barbvenecia DO Unavailable Encounters Date Type Department Care Team Description 05/25/2024 8:00 AM FARM EQUIPMENT SERVICE TECHNICIAN Office Visit [facility] Obstetrics and Gynecology [address] [facility] 13th [place] [address] [place] [phone] Cristina Pinto NP Encounter for routine cancer follow-up (Primary Dx); Endometrial cancer (CMS/HCC) (HCC) from Last 3 Months Allergies No known active allergies Medications aspirin [...] on file Legal Sex Female 3:19 AM FARM EQUIPMENT SERVICE TECHNICIAN Gender Identity Not on file Sexual Orientation Not on file Last Filed Vital Signs Vital Sign Reading Time Taken Comments Blood Pressure 150/91 05/25/2024 8:13 AM FARM EQUIPMENT SERVICE TECHNICIAN Pulse 86 05/25/2024 8:13 AM FARM EQUIPMENT SERVICE TECHNICIAN Temperature 36.8 C (98.3 F) 05/25/2024 8:13 AM FARM EQUIPMENT SERVICE TECHNICIAN Respiratory Rate 16 05/25/2024 8:13 AM FARM EQUIPMENT SERVICE TECHNICIAN Oxygen Saturation 93% 05/25/2024 8:13 AM FARM EQUIPMENT SERVICE TECHNICIAN Inhaled Oxygen Concentration - - Weight 74.3 kg (163 lb 14.4 oz) 05/25/2024 8:13 AM FARM EQUIPMENT SERVICE TECHNICIAN Height 154.9 cm (5' 0.98 ) 05/25/2024 8:13 AM CS T Body Mass Index 30.98 05/25/2024 8:13 AM FARM EQUIPMENT SERVICE TECHNICIAN Plan of Treatment Not on file Procedures Procedure Name Priority Date/Time Associated Diagnosis Comments POCT LIPID PANEL Routine 10/09/2023 8:55 AM CDT Hyperlipidemia associated with type 2 diabetes mellitus (HCC) SCREENING MAMMOGRAM BILATERAL W MARTIR Schedule Routine, Read Routine (OP Routine) 05/30/2022 9:13 AM FARM EQUIPMENT SERVICE TECHNICIAN Screening mammogram, encounter for BASIC METABOLIC [...] Mammogram Bilateral W Martir (05/30/2022 9:13 AM FARM EQUIPMENT SERVICE TECHNICIAN) Anatomical Region Laterality Modality Breast Bilateral Mammography Narrative 05/31/2022 10:11 AM FARM EQUIPMENT SERVICE TECHNICIAN Mammogram Technique: Bilateral Digital Breast Tomosynthesis, Bilateral C-view 2D Screening mammogram. Views obtained: bilateral craniocaudal and bilateral mediolateral oblique. Computer Aided Detection was performed. Mammogram Findings: The present examination has been compared to prior imaging studies performed at [facility] on 01/12/2020 and 04/19/2021, and at [facility]. [facility]] on 02/21/2018. There are scattered areas of [...] compared to prior imaging studies performed at [facility] on 01/12/2020 and 04/19/2021, and at [facility] on 02/21/2018. There are scattered areas [...] - 01/20/2020 7:08 AM CDT Performed at: [address] [place] [id number] Manager Travel: Parminder Colin PhD, Phone: [phone] Hanna Jiang NP LAB BLOOD ORDERABLES Louise loya Result [facility] - 01 * (ABNORMAL) POCT hemoglobin A1c (01/12/2020 11:50 AM CDT) Hgb A1C, POC 7.1(H) 4.0 - 6.0 % [facility] Est Average Gluc POC 157 mg/dL [facility] Comment: The ADA recommends reporting an estimated Average Glucose (eAG) with all Hemoglobin A1c results using the equation derived from a study of 507 normal and diabetic adults. Minority populations were underrepresented and children were not included. (Diabetes Care 31:7972-4426, 2008). The eAG is not equivalent to a fasting glucose. Blood specimen (specimen) 01/12/2020 11:50 AM CDT 01/12/2020 11:50 AM CDT [facility] Marcin Carranza MD POINT OF CARE TEST ORDER VLADISLAV Final Result Performing Organization Address [facility] Co de Phone Number [facility] One [facility] Department of Laboratories [place] [phone] from Last 3 Months or Most Recently Relevant to Health Maintenance [place] [address] [facility] CHOICE PLUS [facility] HMO/PPO Address: [facility] [address] [place] [address] COMMERCIAL GENERIC MEDICARE [facility] COMMERCIAL GENERIC MEDICARE Care Teams Psychiatric Rn Relationship Specialty Start Date End Date Andrea Abernathy MD PCP - General 10/12/13 Marcin Chou DO [address] [facility] [id number] [place] [address] Referring Physician Obstetrics and Gynecology 12/11/19
[2024-05-29 17:42] LABS: Cholesterol 150 mg/dL (0-200); HDL Direct 66 mg/dL; Triglycerides 129 mg/dL (<150)
[2024-05-29 17:53] LABS: LDL Cholesterol Direct 58 mg/dL
[2024-05-29 17:57] LABS: Anion Gap 11 mmol/L (4-12); Blood Urea Nitrogen 18 mg/dL (7-17); Calcium 9.7 mg/dL (8.4-10.2); Carbon Dioxide 36 mmol/L (22-30); Chloride 95 mmol/L (98-107); Estimated Glomerular Filt Rate > 60; Glucose 122 mg/dL (65-110); Potassium 3.6 mmol/L (3.4-5.0); Sodium 142 mmol/L (137-145)
== END 2024-05-29 07:55 | disposition home or self-care (01) ==
LOC: ANHGOSHLAB 07:55
PROVIDERS: Nurse Practitioner Family; PCP Family Medicine; Visit Provider Internal Medicine Nephrology
DX: E87.5 Hyperkalemia (principal); I10 Essential (primary) hypertension; E78.2 Mixed hyperlipidemia; E11.9 Type 2 diabetes mellitus without complications
CPT/HCPCS: 36415; 80048; 80061

== ENCOUNTER 2024-06-24 10:30 | Outpatient (CLI) | payer MEDICARE, SELFPAY ==
--- NOTE | ~2024-06-24 | MM_ITS ---
EXAMINATION: MM screening shauna BI w sharon HISTORY: Screening mammogram TECHNIQUE: Craniocaudal and mediolateral oblique 3-D tomosynthesis images were obtained and synthetic 2-D images were generated. CAD analysis was submitted and interpreted. COMPARISON: 02/21/2018 BREAST PARENCHYMAL COMPOSITION:Not Dense. There are scattered areas of fibroglandular density. FINDINGS: No suspicious mass, calcification, or architectural distortion are identified in either jerrod ast to suggest malignancy. There has been no suspicious interval change. IMPRESSION: No mammographic evidence of malignancy. Recommend routine screening mammography in one year. BI-RADS Category 1: Negative Reviewed, dictated and finalized at location .
== END 2024-06-24 10:31 | disposition home or self-care (01) ==
LOC: MICIMG 10:32
PROVIDERS: PCP Family Medicine; Visit Provider Nurse Practitioner Family
DX: Z12.31 Encounter for screening mammogram for malignant neoplasm of breast (principal)
CPT/HCPCS: 77063; 77067

== ENCOUNTER 2024-07-30 07:53 | Outpatient (CLI) | payer MEDICARE, SELFPAY ==
--- OUTSIDE RECORDS SUMMARY | 2024-07-30 07:58 | XMS_ITS | Clinical Summary ---
Author Organization [facility] Address [address] [place] [address] Care Team Providers Care Impregnator Electrolytic Capacitors Name Role Phone Unavailable Primary Care Provider [...] 2008 Dexa Scan (General) 2023 Pneumococcal Vaccine: 50+ Ye ars (1 of 1 - PCV) 2023 COVID-19 Vaccine ( - 2023-2 5 season) 2023 RSV Immunization or 60+ Years (1 - [...]
--- OUTSIDE RECORDS SUMMARY | 2024-07-30 07:58 | XMS_ITS | Referral Summary ---
Author Organization [facility] [address] Address [address] [place] [address] Care Team Providers Care Call Or Contact Centre Coach Name Role Phone Andrea Abernathy MD Primary Care Provider [phone] [phone] Marcin Chou DO Unavailable Encounters Date Type Department Care Team Description 05/25/2024 8:00 AM BASKETBALL REFEREE Office Visit [facility] Obstetrics and Gynecology [address] [facility] 13th [place] [address] [place] [phone] Cristina Pinto NP Encounter for routine cancer follow-up (Primary Dx); Endometrial cancer (HCC) from Last 3 Months Allergies No [...] knee 02/08/2020 Radiotherapy follow-up 02/08/2020 Endometrial cancer 12/23/2019 Morbid obesity 12/23/2019 Right fascicular block 04/17/2016 Overview (07/19/2016): Right bundle branch block Preoperative state 04/17/2016 Overview (07/19/2016): Pre-operative cardiovascular examination Essential hypertension 04/17/2016 Overview (07/19/2016): Essential hypertension Immunizations Immunization Administration Dates Next Due Influenza, Quadrivalent, Split, [...] on file Legal Sex Female 3:19 AM BASKETBALL REFEREE Gender Identity Not on file Sexual Orientation Not on file Last Filed Vital Signs Vital Sign [place] Time Taken Comments Blood Pressure 150/91 05/25/2024 8:13 AM BASKETBALL REFEREE Pulse 86 05/25/2024 8:13 AM BASKETBALL REFEREE Temperature 36.8 C (98.3 F) 05/25/2024 8:13 AM BASKETBALL REFEREE Respiratory Rate 16 05/25/2024 8:13 AM BASKETBALL REFEREE Oxygen Saturation 93% 05/25/2024 8:13 AM BASKETBALL REFEREE Inhaled Oxygen Concentration - - Weight 74.3 kg (163 lb 14.4 oz) 05/25/2024 8:13 AM BASKETBALL REFEREE Height 154.9 cm (5' 0.98 ) 05/25/2024 8:13 AM CS T Body Mass Index 30.98 05/25/2024 8:13 AM BASKETBALL REFEREE Plan of Treatment Not on file Procedures Procedure Name Priority Date/Time Associated Diagnosis Comments POCT LIPID PANEL Routine 10/09/2023 8:55 AM CDT Hyperlipidemia associated with type 2 diabetes mellitus (HCC) SCREENING MAMMOGRAM BILATERAL W MARTIR Schedule Routine, Read Routine (OP Routine) 05/30/2022 9:13 AM BASKETBALL REFEREE Screening mammogram, encounter for BASIC METABOLIC PANEL [...] Mammogram Bilateral W Martir (05/30/2022 9:13 AM BASKETBALL REFEREE) Anatomical Region Laterality Modality Breast Bilateral Mammography Narrative 05/31/2022 10:11 AM BASKETBALL REFEREE Mammogram Technique: Bilateral Digital Breast Tomosynthesis, Bilateral C-view 2D Screening mammogram. Views obtained: bilateral craniocaudal and bilateral mediolateral oblique. Computer Aided Detection was performed. Mammogram Findings: The present examination has been compared to prior imaging studies performed at [facility] on 01/12/2020 and 04/19/2021, and at [facility]. [facility] on 02/21/2018. There are scattered areas of [...] compared to prior imaging studies performed at [facility] on 01/12/2020 and 04/19/2021, and at [facility] on 02/21/2018. There are scattered areas [...] - 01/20/2020 7:08 AM CDT Performed at: [address] [place] [id number] Dermatologist: Parminder Colin PhD, Phone: [phone] Hanna Jiang NP LAB BLOOD ORDERABLES Louise l Result [facility] - 01 * (ABNORMAL) POCT hemoglobin A1c (01/12/2020 11:50 AM CDT) Hgb A1C, POC 7.1(H) 4.0 - 6.0 % [facility] Est Average Gluc POC 157 mg/dL [facility] Comment: The ADA recommends reporting an estimated Average Glucose (eAG) with all Hemoglobin A1c results using the equation derived from a study of 507 normal and diabetic adults. Minority populations were underrepresented and children were not included. (Diabetes Care 31:6025-1986, 2008). The eAG is not equivalent to a fasting glucose. Blood specimen (specimen) 01/12/2020 11:50 AM CDT 01/12/2020 11:50 AM CDT Romaine Carranza MD POINT OF CARE TEST ORDER VLADISLAV Final Result Performing Organization Address City/[facility] Co de Phone Number [facility] One [facility] Department of Laboratories [place] [phone] from Last 3 Months or Most Recently Relevant to Health Maintenance [place] [address] [facility] CHOICE PLUS COMMERCIAL GENERIC MEDICARE [facility] COMMERCIAL GENERIC MEDICARE [place] MEDICARE SUPPLEMENT Care Teams Call Or Contact Centre Coach Relationship Specialty Start Date End Date Andrea Abernathy MD PCP - General 10/12/13 Marcin Chou DO [address] [facility] [id number] [place] [address] Referring Physician Obstetrics and Gynecology 12/11/19
--- OUTSIDE RECORDS SUMMARY | 2024-07-30 07:58 | XMS_ITS | Clinical Summary ---
Author Organization [facility] [address] Address [address] [place] [address] Care Team Providers Care Roll Mill Operator Name Role Phone Andrea Abernathy MD Primary Care Provider [phone] [phone] Hase Taranmitzi DO Unavailable Allergies No known [...] Department Care Team Description 05/25/2024 8:00 AM LEAF COVERER Office Visit [facility] Obstetrics and Gynecology [address] [facility] 13th [place] [address] [place] [address] Cristina Pinto NP Encounter for routine cancer follow-up (Primary Dx); Endometrial cancer (HCC) from Last 3 Months Immunizations Immunization Administration Dates Next Due Influenza, [...] History Date Comments Diabetes mellitus (HCC) Dxd 2020 Hypertension Dxd ~2000 Palpitation History of TIA (transient is chemic attack) 2010 Per pt, TIA manifested as tr ansient dizziness in middle of night. Cancer (HCC) Stroke (HCC) 2010 Family History Medical [...] on file Legal Sex Female 3:19 AM LEAF COVERER Gender Identity Not on file Sexual Orientation Not on file Obstetrics History Para Term AB IAB SAB Ectopic Multiple Livin g Live Births 2 2 2 2 2 Date Outcome GA Total Labor Labor/2nd/3rd Weight Sex Type Anes PTL Stephany A1 A5 Name Clin Term Term Last Filed Vital Signs Vital Sign Reading Time Taken Comments Blood Pressure 150/91 05/25/2024 8:13 AM LEAF COVERER Pulse 86 05/25/2024 8:13 AM LEAF COVERER Temperature 36.8 C (98.3 F) 05/25/2024 8:13 AM LEAF COVERER Respiratory Rate 16 05/25/2024 8:13 AM LEAF COVERER Oxygen Saturation 93% 05/25/2024 8:13 AM LEAF COVERER Inhaled Oxygen Concentration - - Weight 74.3 kg (163 lb 14.4 oz) 05/25/2024 8:13 AM LEAF COVERER Height 154.9 cm (5' 0.98 ) 05/25/2024 8:13 AM CS T Body Mass Index 30.98 05/25/2024 8:13 AM LEAF COVERER Plan of Treatment Health Maintenance Due Date Last Done Comments Albumin Creatinine Ratio, Urine 1960 Colon Cancer Screening-Colonoscopy 1960 Depression Screening 1960 Hepatitis C Screening 1960 Osteoporosis Screening-Bone Density Scan 1960 Dilated Eye Exam 1960 Foot Exam 1960 DTaP/Tdap/Td Vaccine (1 - Tdap) 1969 Hepatitis B Screening 1976 Pneumococcal vaccine 65+ (1 of 2 - PCV) 1977 Zoster Vaccine (1 of 2) 2008 Hemoglobin A1C 07/11/2020 01/12/2020 eGFR 01/18/2021 01/19/2020, 05/17/2017 Fall Risk Assessment 01/25/2021 01/26/2020 Well Visit 65+ 2023 Breast Cancer Screening-Mammogram 05/30/2023 05/30/2022, 04/19/2021, 01/12/2020 Influenza Vaccine (#1) 2023 9, 02/19/2018, 02/02/2016, Additional history exists Lipid Panel 10/08/2024 10/09/2023, 12/11/2022, 04/24/2022, Additional history exists Procedures Procedure Name Priority Date/Time Associated Diagnosis Comments POCT LIPID PANEL Routine 10/09/2023 8:55 AM CDT Hyperlipidemia associated with type 2 diabetes mellitus (HCC) SCREENING MAMMOGRAM BILATERAL W MARTIR Schedule Routine, Read Routine (OP Routine) 05/30/2022 9:13 AM LEAF COVERER Screening mammogram, encounter for BASIC METABOLIC PANEL [...] Mammogram Bilateral W Martir (05/30/2022 9:13 AM LEAF COVERER) Anatomical Region Laterality Modality Breast Bilateral Mammography Narrative 05/31/2022 10:11 AM LEAF COVERER Mammogram Technique: Bilateral Digital Breast Tomosynthesis, Bilateral C-view 2D Screening mammogram. Views obtained: bilateral craniocaudal and bilateral mediolateral oblique. Computer Aided Detection was performed. Mammogram Findings: The present examination has been compared to prior imaging studies performed at [facility] on 01/12/2020 and 04/19/2021, and at [facility] on 02/21/2018. There are scattered [...] compared to prior imaging studies performed at [facility] on 01/12/2020 and 04/19/2021, and at [facility] on 02/21/2018. There are scattered [...] 01/20/2020 7:08 AM CDT Performed at: - [address] [id number] Counter Person: Parminder Colin PhD, Phone: [phone] Hanna Jiang NP LAB BLOOD ORDERABLES Louise l Result [facility] - 01 * (ABNORMAL) POCT hemoglobin A1c (01/12/2020 11:50 AM CDT) Pathologist [facility] Hgb A1C, POC 7.1(H) 4.0 - 6.0 % [facility] Est Average Gluc POC 157 mg/dL [facility] Comment: The ADA recommends reporting an estimated Average Glucose (eAG) with all Hemoglobin A1c results using the equation derived from a study of 507 normal and diabetic adults. Minority populations were underrepresented and children were not included. (Diabetes Care 31:8712-2657, 2008). The eAG is not equivalent to a fasting glucose. Blood specimen (specimen) 01/12/2020 11:50 AM CDT 01/12/2020 11:50 AM CDT Romaine Carranza MD POINT OF CARE TEST ORDER VLADISLAV Final Result [facility] Department [place] [address] from Last 3 Months or Most Recently Relevant to Health Maintenance [place] [address] [facility] CHOICE PLUS [facility] HMO/PPO Address: [address] [address] [place] [address] COMMERCIAL GENERIC MEDICARE [facility] COMMERCIAL GENERIC MEDICARE [place] MEDICARE SUPPLEMENT Care Teams Roll Mill Operator Relationship Specialty Start Date End Date Andrea Abernathy MD PCP - General 10/12/13 Marcin Chou DO [address] [facility] [id number] [place] [address] Referring Physician Obstetrics and Gynecology 12/11/19
--- OUTSIDE RECORDS SUMMARY | 2024-07-30 07:58 | XMS_ITS | Encounter Summary ---
Author Organization [facility] Address [address] [facility] [address] [place] [address] Care Team Providers Care Egg Tester Name Role Phone Andrea Abernathy MD Primary Care Provider [phone] [phone] Marcin Chou DO Unavailable Encounter Details Date Type Department Care Team (Late st Contact Info) Description 04/11/2016 Orders Only [facility] ProviderFlaquita MD [address] [place], [place] [id number] Social History Tobacco Use Types Packs/Day Years Used Date Smoking Tobacco: Never Assessed Comments Unknown Sex and Gender Information Value Date Recorded Sex Assigned at Not on file Legal Sex Female 3:19 AM TECHNICAL EXPERT Gender Identity Not on file Sexual Orientation [...] COVID: Suspected 03/28/2021 03/28/2021 03/28/2021 2:45 PM TECHNICAL EXPERT documented as of this encounter Care Teams Egg Tester Relationship Specialty Start Date End Date Andrea Abernathy MD PCP - General 10/12/13 Marcin Chou DO [address] [facility] [id number] [place] [address] Referring Physician Obstetrics and Gynecology 12/11/19 documented as of this encounter
[2024-07-30 13:37] LABS: Hemoglobin A1C 6.8 % (<5.7)
== END 2024-07-30 07:54 | disposition home or self-care (01) ==
LOC: ANHGOSHLAB 07:54
PROVIDERS: PCP Family Medicine; Visit Provider Nurse Practitioner Family
DX: E11.9 Type 2 diabetes mellitus without complications (principal); E78.2 Mixed hyperlipidemia
CPT/HCPCS: 36415; 83036

== ENCOUNTER 2024-08-14 14:05 | Outpatient (CLI) | payer MEDICARE, SELFPAY ==
--- NOTE | ~2024-08-14 | DEXA_ITS ---
Bone Density Report Name: LUCIANA YING Age: 64 Sex: Female Ethnicity: White Date of : 1960 Indication: postmenopausal; screening for osteoporosis; Referring Provider: USMAN INGRAM Study: Bone densitometry was performed. Exam Date: August 14, 2024 Accession number: [id number] Bone Density: Region BMD T-score Z-score Classification AP Spine(L1-L4) 0.978 -0.6 1.2 Normal Femoral Neck (Left) 0.709 -1.3 0.3 Osteopenia Total Hip (Left) 0.909 -0.3 1.0 Normal Femoral Neck (Right) 0.763 -0.8 0.8 Normal Total Hip (Right) 0.871 -0.6 0.7 Normal Total Hip Mean 0.890 -0.5 0.9 Normal World Health Organization criteria for BMD impression classify patients as: Normal (T-score at or above -1.0), Osteopenia (T-score between -1.0 and -2.5), or Osteoporosis (T-score at or below -2.5). 10-year Fracture Risk(1): Major Osteoporotic Fracture 8.3% Hip Fracture 0.7% Reported Risk Factors: [place] (), Neck BMD=0.709, BMI=30.7 (1) FRAX(R) Version 3.08. Fracture probability calculated for an untreated patient. Fracture probability may be lower if the patient has received treatment. Clinical Information Provided by Patient: Has used the following medications: Vitamin D Patient maximum height was 60 Menopause Age: 46 No regular weight bearing exercise Drinks caffeinated beverages Onset of menses at age 12 Number of children 2 Impression: The patient has low bone mass, based on the Left Femoral Neck T-score. The patient has an estimated ten-year risk of hip fracture of 0.7% and an estimated ten-year risk of major fracture of 8.3%, based on the WHO FRAX algorithm. Discussion: BONE DENSITY IS LOW AT ONE OR MORE SKELETAL SITES. This patient's lowest T-score is low at one or more skeletal sites. It meets the World Health Organization's (WHO) criteria for ?low bone mass? (T-score between -1.0 and -2.5). The patient's 10-year risk of fracture as calculated by FRAX is less than the threshold where pharmacological therapy is recommended by the National Osteoporosis Foundation (NOF). However, all treatment decisions require clinical judgment and consideration of individual patient factors, including patient preferences, comorbidities, previous drug use, risk factors not captured in the FRAX model (e.g., frailty, falls, vitamin D deficiency, increased bone turnover, interval significant decline in bone density) and possible under or overestimation of fracture risk by FRAX. The patient should follow a healthful lifestyle (good nutrition with adequate calcium and vitamin D, and appropriate weight-bearing exercise). Follow-Up: Consider repeating this study in 2 to 3 years to reassess this patient's status, or sooner if there is some new clinical indication. Reported by: JOHANNA on 08/14/2024 2:38:00 PM. Reviewed, dictated and finalized at location A.
--- OUTSIDE RECORDS SUMMARY | 2024-08-15 14:14 | XMS_ITS | Encounter Summary ---
Author Organization [facility] Address [address] [facility] [address] [place] [address] Care Team Providers Care Technical Sales Manager Name Role Phone Andrea Abernathy MD Primary Care Provider [phone] [phone] Marcin Chou DO Unavailable Encounter Details Date Type Department Care Team (Late st Contact Info) Description 04/11/2016 Orders Only [facility] ProviderFlaquita MD [address] [place], [place] [id number] Social History Tobacco Use Types Packs/Day Years Used Date Smoking Tobacco: Never Assessed Comments Unknown Sex and Gender Information Value Date Recorded Sex Assigned at Not on file Legal Sex Female 3:19 AM FLYER REPAIRER Gender Identity Not on file Sexual Orientation [...] COVID: Suspected 03/28/2021 03/28/2021 03/28/2021 2:45 PM FLYER REPAIRER documented as of this encounter Care Teams Technical Sales Manager Relationship Specialty Start Date End Date Andrea Abernathy MD PCP - General 10/12/13 Marcin Chou DO [address] [facility] [id number] [place] [address] Referring Physician Obstetrics and Gynecology 12/11/19 documented as of this encounter
--- OUTSIDE RECORDS SUMMARY | 2024-08-15 14:14 | XMS_ITS | Referral Summary ---
Author Organization [facility] [address] Address [address] [place] [address] Care Team Providers Care Physical Anthropologist Name Role Phone Andrea Abernathy MD Primary Care Provider [phone] [phone] Marcin Chou DO Unavailable Encounters Date Type Department Care Team Description 05/25/2024 8:00 AM MANAGER PRINT Office Visit [facility] Obstetrics and Gynecology [address] [facility] Advanced Medicine 13th [place] [address] [place] [id number] Cristina Pinto NP Encounter for routine cancer [...] on file Legal Sex Female 3:19 AM MANAGER PRINT Gender Identity Not on file Sexual Orientation Not on file Last Filed Vital Signs Vital Sign Reading Time Taken Comments Blood Pressure 150/91 05/25/2024 8:13 AM MANAGER PRINT Pulse 86 05/25/2024 8:13 AM MANAGER PRINT Temperature 36.8 C (98.3 F) 05/25/2024 8:13 AM MANAGER PRINT Respiratory Rate 16 05/25/2024 8:13 AM MANAGER PRINT Oxygen Saturation 93% 05/25/2024 8:13 AM MANAGER PRINT Inhaled Oxygen Concentration - - Weight 74.3 kg (163 lb 14.4 oz) 05/25/2024 8:13 AM MANAGER PRINT Height 154.9 cm (5' 0.98 ) 05/25/2024 8:13 AM CS T Body Mass Index 30.98 05/25/2024 8:13 AM MANAGER PRINT Plan of Treatment Not on file Procedures Procedure Name Priority Date/Time Associated Diagnosis Comments POCT LIPID PANEL Routine 10/09/2023 8:55 AM CDT Hyperlipidemia associated with type 2 diabetes mellitus (HCC) SCREENING MAMMOGRAM BILATERAL W MARTIR Schedule Routine, Read Routine (OP Routine) 05/30/2022 9:13 AM MANAGER PRINT Screening mammogram, encounter for BASIC METABOLIC PANEL [...] Mammogram Bilateral W Martir (05/30/2022 9:13 AM MANAGER PRINT) Anatomical Region Laterality Modality Breast Bilateral Mammography Narrative 05/31/2022 10:11 AM MANAGER PRINT Mammogram Technique: Bilateral Digital Breast Tomosynthesis, Bilateral C-view 2D Screening mammogram. Views obtained: bilateral craniocaudal and bilateral mediolateral oblique. Computer Aided Detection was performed. Mammogram Findings: The present examination has been compared to prior imaging studies performed at [facility] on 01/12/2020 and 04/19/2021, and at [facility] on 02/21/2018. There are scattered areas [...] compared to prior imaging studies performed at [facility] on 01/12/2020 and 04/19/2021, and at [facility] on 02/21/2018. There are scattered [...] - 01/20/2020 7:08 AM CDT Performed at: [address] [place] [id number] Dental Laboratory Technology Teacher: Parminder Colin PhD, Phone: [phone] Hanna Jiang NP LAB BLOOD ORDERABLES Louise l Result [facility] - 01 * (ABNORMAL) POCT hemoglobin A1c (01/12/2020 11:50 AM CDT) Hgb A1C, POC 7.1(H) 4.0 - 6.0 % [facility] Est Average Gluc POC 157 mg/dL [facility] Comment: The ADA recommends reporting an estimated Average Glucose (eAG) with all Hemoglobin A1c results using the equation derived from a study of 507 normal and diabetic adults. Minority populations were underrepresented and children were not included. (Diabetes Care 31:5255-1267, 2008). The eAG is not equivalent to a fasting glucose. Blood specimen (specimen) 01/12/2020 11:50 AM CDT 01/12/2020 11:50 AM CDT Romaine Carranza MD POINT OF CARE TEST ORDER VLADISLAV Final Result Performing Organization Address City/[facility] Co de Phone Number [facility] Department of Laboratories [place] [phone] from Last 3 Months or Most Recently Relevant to Health Maintenance [place] [address] [facility] CHOICE PLUS [facility] HMO/PPO Address: [facility] [address] [place] [address] COMMERCIAL GENERIC MEDICARE [facility] COMMERCIAL GENERIC MEDICARE [place] [employer] MEDICARE SUPPLEMENT Care Teams Physical Anthropologist Relationship Specialty Start Date End Date Andrea Abernathy MD PCP - General 10/12/13 Marcin Chou DO [address] [facility] [id number] [place] [address] Referring Physician Obstetrics and Gynecology 12/11/19
--- OUTSIDE RECORDS SUMMARY | 2024-08-15 14:14 | XMS_ITS | Clinical Summary ---
Author Organization [facility] Address [address] [place] [address] Care Team Providers Care Auto Parts Clerk Name Role Phone Unavailable Primary Care Provider [...] 1 - Tdap) 1977 Mammogram Screening 1998 Pneumococcal Vaccine: 50+ Ye ars (1 of 1 - PCV) 2008 Zoster Vaccines (1 of 2) 2008 Dexa Scan (General) 2023 COVID-19 Vaccine ( - 2023-2 5 [...]
--- OUTSIDE RECORDS SUMMARY | 2024-08-15 14:14 | XMS_ITS | Clinical Summary ---
Author Organization [facility] [address] Address [address] [place] [address] Care Team Providers Care Customer Consultant Name Role Phone Andrea Abernathy MD Primary Care Provider [phone] [phone] Hase Taranmitzi DO Unavailable Allergies No known [...] Department Care Team Description 05/25/2024 8:00 AM SALES REPRESENTATIVE GIRLS' APPAREL Office Visit [facility] Obstetrics and Gynecology [address] [facility] Advanced Medicine 13th [place] [address] [place] [address] Cristina Pinto NP Encounter for routine cancer [...] on file Legal Sex Female 3:19 AM SALES REPRESENTATIVE GIRLS' APPAREL Gender Identity Not on file Sexual Orientation Not on file Obstetrics History Para Term AB IAB SAB Ectopic Multiple Livin g Live Births 2 2 2 2 2 Date Outcome GA Total Labor Labor/2nd/3rd Weight Sex Type Anes PTL Stephany A1 A5 Name Clin Term Term Last Filed Vital Signs Vital Sign Reading Time Taken Comments Blood Pressure 150/91 05/25/2024 8:13 AM SALES REPRESENTATIVE GIRLS[employer] APPAREL Pulse 86 05/25/2024 8:13 AM SALES REPRESENTATIVE GIRLS[employer]PAREL Temperature 36.8 C (98.3 F) 05/25/2024 8:13 AM SALES REPRESENTATIVE GIRLS[employer] APPAREL Respiratory Rate 16 05/25/2024 8:13 AM SALES REPRESENTATIVE GIRLS' APPAREL Oxygen Saturation 93% 05/25/2024 8:13 AM SALES REPRESENTATIVE GIRLS[employer] APPAREL Inhaled Oxygen Concentration - - Weight 74.3 kg (163 lb 14.4 oz) 05/25/2024 8:13 AM SALES REPRESENTATIVE GIRLS' APPAREL Height 154.9 cm (5' 0.98 ) 05/25/2024 8:13 AM CS T Body Mass Index 30.98 05/25/2024 8:13 AM SALES REPRESENTATIVE GIRLS' APPAREL Plan of Treatment Health Maintenance Due Date [...] Read Routine (OP Routine) 05/30/2022 9:13 AM SALES REPRESENTATIVE GIRLS' APPAREL Screening mammogram, encounter for BASIC METABOLIC PANEL [...] Mammogram Bilateral W Martir (05/30/2022 9:13 AM SALES REPRESENTATIVE GIRLS' APPAREL) Anatomical Region Laterality Modality Breast Bilateral Mammography Narrative 05/31/2022 10:11 AM SALES REPRESENTATIVE GIRLS' APPAREL Mammogram Technique: Bilateral Digital Breast Tomosynthesis, Bilateral C-view 2D Screening mammogram. Views obtained: bilateral craniocaudal and bilateral mediolateral oblique. Computer Aided Detection was performed. Mammogram Findings: The present examination has been compared to prior imaging studies performed at [facility] on 01/12/2020 and 04/19/2021, and at [facility] on 02/21/2018. There are scattered areas of [...] compared to prior imaging studies performed at [facility] on 01/12/2020 and 04/19/2021, and at [facility] on 02/21/2018. There are scattered areas of [...] 01/20/2020 7:08 AM CDT Performed at: - [address] [id number] Beverage Specialist: Parminder Colin PhD, Phone: [phone] Hanna Jiang NP LAB BLOOD ORDERABLES Louise l Result [facility] - 01 * (ABNORMAL) POCT hemoglobin A1c (01/12/2020 11:50 AM CDT) Pathologist [facility] Hgb A1C, POC 7.1(H) 4.0 - 6.0 % [facility] Est Average Gluc POC 157 mg/dL [facility] Comment: The ADA recommends reporting an estimated Average Glucose (eAG) with all Hemoglobin A1c results using the equation derived from a study of 507 normal and diabetic adults. Minority populations were underrepresented and children were not included. (Diabetes Care 31:7860-7280, 2008). The eAG is not equivalent to a fasting glucose. Blood specimen (specimen) 01/12/2020 11:50 AM CDT 01/12/2020 11:50 AM CDT Romaine Carranza MD POINT OF CARE TEST ORDER VLADISLAV Final Result [facility] Department [place] [address] from Last 3 Months or Most Recently Relevant to Health Maintenance [place] [address] [facility] CHOICE PLUS [facility] HMO/PPO Address: [address] [address] [place] [address] COMMERCIAL GENERIC MEDICARE [facility] COMMERCIAL GENERIC MEDICARE [place] MEDICARE SUPPLEMENT Care Teams Customer Consultant Relationship Specialty Start Date End Date Andrea Abernathy MD PCP - General 10/12/13 Marcin Chou DO [address] [facility] [id number] [place] [address] Referring Physician Obstetrics and Gynecology 12/11/19
== END 2024-08-14 14:06 | disposition home or self-care (01) ==
LOC: ANHIMG 14:06
PROVIDERS: PCP Family Medicine; Visit Provider Nurse Practitioner Family
DX: Z78.0 Asymptomatic menopausal state (principal); M85.852 Other specified disorders of bone density and structure, left thigh
CPT/HCPCS: 77080

== ENCOUNTER 2024-11-12 07:52 | Outpatient (CLI) | payer MEDICARE, SELFPAY ==
--- OUTSIDE RECORDS SUMMARY | 2024-11-12 07:55 | XMS_ITS | Clinical Summary ---
Author Organization [facility] Address [address] [place] [address] Care Team Providers Care Break Off Worker Name Role Phone Unavailable Primary Care Provider [...]
--- OUTSIDE RECORDS SUMMARY | 2024-11-12 07:55 | XMS_ITS | Encounter Summary ---
Author Organization [facility] Address [address] [facility] [address] [place] [address] Care Team Providers Care Culinary Worker Name Role Phone Andrea Abernathy MD Primary Care Provider [phone] [phone] Marcin Chou DO Unavailable Encounter Details Date Type Department Care Team (Late st Contact Info) Description 04/11/2016 Orders Only [facility] ProviderFlaquita MD [address] [place], [place] [id number] Social History Tobacco Use Types Packs/Day Years Used Date Smoking Tobacco: Never Assessed Comments Unknown Sex and Gender Information Value Date Recorded Sex Assigned at Not on file Legal Sex Female 3:19 AM PLUGMAN Gender Identity Not on file Sexual Orientation [...] COVID: Suspected 03/28/2021 03/28/2021 03/28/2021 2:45 PM PLUGMAN documented as of this encounter Care Teams Culinary Worker Relationship Specialty Start Date End Date Andrea Abernathy MD PCP - General 10/12/13 Marcin Chou DO [address] [facility] [id number] [place] [address] Referring Physician Obstetrics and Gynecology 12/11/19 documented as of this encounter
--- OUTSIDE RECORDS SUMMARY | 2024-11-12 07:55 | XMS_ITS | Referral Summary ---
Author Organization [facility] [address] Address [address] [place] [address] Care Team Providers Care Finishing Pan Operator Name Role Phone Andrea Abernathy MD Primary Care Provider [phone] [phone] Hase Taranmitzi DO Unavailable Allergies No known active allergies Medications aspirin (ASPIR-81) 81 mg tablet take 1 tablet by oral route every day 0 0 04/17/19 17 Active multivitamin tablet tablet take 1 tablet by oral route every day with food 0 0 04/17/19 17 Active Additional Information Patient taking differently: 2 tablet Every morning, gummies, Indications: Vitamin Deficiency Prevention, Reported on 01/12/2020 amLODIPine (NORVASC) 10 mg tablet 1 tablet (10 mg total) daily. 90 tablet 3 05/15/19 18 Active cholecalcifero l (VITAMIN D-3) 50,000 unit capsuleIndicat ions:Vitamin D Deficiency Take 1 capsule (50,000 Units total) by mouth Every 2 weeks Active metFORMIN (GLUCOPHAGE) 500 mg tabletIndicati ons:type 2 diabetes mellitus nightly Active atorvastatin (LIPITOR) 40 mg tablet TAKE 1 TABLET BY MOUTH ONCE DAILY AT NIGHT 90 tablet 08/07/19 23 Active Additional Information Patient not taking.Reported on 10/09/2023 Jardiance 25 mg tablet Take 1 tablet (25 mg total) by mouth daily 07/23/19 23 Active chlorthalidone (HYGROTON) 25 mg tablet Take 1 tablet (25 mg total) by mouth daily 04/25/19 25 Active carvediloL (COREG) 6.25 mg tablet TAKE 1 TABLET BY MOUTH TWICE DAILY WITH MEALS 180 tablet 11/10/19 25 Active carvediloL (COREG) 6.25 mg tablet TAKE 1 TABLET BY MOUTH TWICE DAILY WITH MEALS 180 tablet 3 11/20/19 24 025 Discontinued Active Problems Problem Noted Date Diagnosed Date [...] on file Legal Sex Female 3:19 AM ABORIGINAL LIAISON OFFICER Gender Identity Not on file Sexual Orientation Not on file Last Filed Vital Signs Vital Sign Reading Time Taken Comments Blood Pressure 150/91 05/25/2024 8:13 AM ABORIGINAL LIAISON OFFICER Pulse 86 05/25/2024 8:13 AM ABORIGINAL LIAISON OFFICER Temperature 36.8 C (98.3 F) 05/25/2024 8:13 AM ABORIGINAL LIAISON OFFICER Respiratory Rate 16 05/25/2024 8:13 AM ABORIGINAL LIAISON OFFICER Oxygen Saturation 93% 05/25/2024 8:13 AM ABORIGINAL LIAISON OFFICER Inhaled Oxygen Concentration - - Weight 74.3 kg (163 lb 14.4 oz) 05/25/2024 8:13 AM ABORIGINAL LIAISON OFFICER Height 154.9 cm (5' 0.98) 05/25/2024 8:13 AM CS T Body Mass Index 30.98 05/25/2024 8:13 AM ABORIGINAL LIAISON OFFICER Plan of Treatment Not on file Procedures Procedure Name Priority Date/Time Associated Diagnosis Comments SCREENING MAMMOGRAM BILATERAL W MARTIR Schedule Routine, Read Routine (OP Routine) 05/30/2022 9:13 AM ABORIGINAL LIAISON OFFICER Screening mammogram, encounter for from Last 3 Months or Most Recently Relevant to Health Maintenance Results * Screening Mammogram Bilateral W Martir (05/30/2022 9:13 AM ABORIGINAL LIAISON OFFICER) Anatomical Region Laterality Modality Breast Bilateral Mammography Narrative 05/31/2022 10:11 AM ABORIGINAL LIAISON OFFICER Mammogram Technique: Bilateral Digital Breast Tomosynthesis, Bilateral C-view 2D Screening mammogram. Views obtained: bilateral craniocaudal and bilateral mediolateral oblique. Computer Aided Detection was performed. Mammogram Findings: The present examination has been compared to prior imaging studies performed at [facility] on 01/12/2020 and 04/19/2021, and at [facility] on 02/21/2018. There are scattered areas [...] compared to prior imaging studies performed at [facility] on 01/12/2020 and 04/19/2021, and at [facility] on 02/21/2018. There are scattered areas of fibroglandular density. There is no suspicious abnormality in either breast. Impression: There is no mammographic evidence of malignancy. Annual screening mammography is recommended. OVERALL FINAL ASSESSMENT: BI-RADS CATEGORY 1: Negative. us Self Screening Mammogram IMG MAMMO PROCEDURES Fi nal Result from Last 3 Months or Most Recently Relevant to Health Maintenance Insurance [facility] CHOICE PLUS COMMERCIAL GENERIC MEDICARE [facility] COMMERCIAL GENERIC MEDICARE [place] MEDICARE SUPPLEMENT Care Teams Finishing Pan Operator Relationship Specialty Start Date End Date Andrea Abernathy MD PCP - General 10/12/13 Marcin Chou DO [address] [facility] [id number] [place] [address] Referring Physician Obstetrics and Gynecology 12/11/19
--- OUTSIDE RECORDS SUMMARY | 2024-11-12 07:55 | XMS_ITS | Clinical Summary ---
Author Organization [facility] [address] Address [address] [place] [address] Care Team Providers Care Pedicab Driver Name Role Phone Andrea Abernathy MD Primary Care Provider [phone] [phone] Hase Taranmitzi DO Unavailable Allergies No known [...] on file Legal Sex Female 3:19 AM CIVIL CAD TECH Gender Identity Not on file Sexual Orientation Not on file Obstetrics History Para Term AB IAB SAB Ectopic Multiple Livin g Live Births 2 2 2 2 2 Date Outcome GA Total Labor Labor/2nd/3rd Weight Sex Type Anes PTL Stephany A1 A5 Name Clin Term Term Last Filed Vital Signs Vital Sign Reading Time Taken Comments Blood Pressure 150/91 05/25/2024 8:13 AM CIVIL CAD TECH Pulse 86 05/25/2024 8:13 AM CIVIL CAD TECH Temperature 36.8 C (98.3 F) 05/25/2024 8:13 AM CIVIL CAD TECH Respiratory Rate 16 05/25/2024 8:13 AM CIVIL CAD TECH Oxygen Saturation 93% 05/25/2024 8:13 AM CIVIL CAD TECH Inhaled Oxygen Concentration - - Weight 74.3 kg (163 lb 14.4 oz) 05/25/2024 8:13 AM CIVIL CAD TECH Height 154.9 cm (5' 0.98) 05/25/2024 8:13 AM CS T Body Mass Index 30.98 05/25/2024 8:13 AM CIVIL CAD TECH Plan of Treatment Health Maintenance Due Date Last Done Comments Colon Cancer Screening-Colonoscopy 1958 Depression Screening 1958 Hepatitis C Screening 1958 Osteoporosis Screening-Bone Density Scan 1958 DTaP/Tdap/Td Vaccine (1 - Tdap) 1969 Hepatitis B Screening 1976 Pneumococcal vaccine 65+ (1 of 1 - PCV) 2008 Zoster Vaccine (1 of 2) 2008 Fall Risk Assessment 01/25/2021 01/26/2020 Well Visit 65+ 2023 Breast Cancer Screening-Mammogram 05/30/2023 05/30/2022, 04/19/2021, 01/12/2020 Influenza Vaccine (#1) 2024 9, 02/19/2018, 02/02/2016, Additional history exists Procedures Procedure Name Priority Date/Time Associated Diagnosis Comments SCREENING MAMMOGRAM BILATERAL W MARTIR Schedule Routine, Read Routine (OP Routine) 05/30/2022 9:13 AM CIVIL CAD TECH Screening mammogram, encounter for from Last 3 Months or Most Recently Relevant to Health Maintenance Results * Screening Mammogram Bilateral W Martir (05/30/2022 9:13 AM CIVIL CAD TECH) Anatomical Region Laterality Modality Breast Bilateral Mammography Narrative 05/31/2022 10:11 AM CIVIL CAD TECH Mammogram Technique: Bilateral Digital Breast Tomosynthesis, Bilateral C-view 2D Screening mammogram. Views obtained: bilateral craniocaudal and bilateral mediolateral oblique. Computer Aided Detection was performed. Mammogram Findings: The present examination has been compared to prior imaging studies performed at [facility] on 01/12/2020 and 04/19/2021, and at [facility] on 02/21/2018. There are scattered areas of [...] compared to prior imaging studies performed at [facility] on 01/12/2020 and 04/19/2021, and at [facility] on 02/21/2018. There are scattered areas of fibroglandular density. There is no suspicious abnormality in either breast. Impression: There is no mammographic evidence of malignancy. Annual screening mammography is recommended. OVERALL FINAL ASSESSMENT: BI-RADS CATEGORY 1: Negative. us Self Screening Mammogram IMG MAMMO PROCEDURES Fi nal Result from Last 3 Months or Most Recently Relevant to Health Maintenance Insurance [facility] CHOICE [facility]US [facility] H[facility]/PPO Address: [address] [address] [place] [address] COMMERCIAL GENERIC MEDICARE [facility] COMMERCIAL GENERIC [place] [id number] MEDICARE [place] MEDICARE SUPPLEMENT Care Teams Pedicab Driver Relationship Specialty Start Date End Date Andrea Abernathy MD PCP - General 10/12/13 Marcin Chou DO [address] [facility] [id number] [place] [address] Referring Physician Obstetrics and Gynecology 12/11/19
[2024-11-12 13:12] LABS: Albumin Level 4.7 g/dL (3.5-5.1); Anion Gap 9 mmol/L (4-12); Blood Urea Nitrogen 10 mg/dL (7-17); Calcium 10.0 mg/dL (8.4-10.2); Carbon Dioxide 33 mmol/L (22-30); Chloride 95 mmol/L (98-107); Estimated Glomerular Filt Rate > 60; Glucose 121 mg/dL (65-110); Potassium 3.4 mmol/L (3.4-5.0); Sodium 137 mmol/L (137-145)
[2024-11-12 13:39] LABS: Total Protein Urine Random 12 mg/dL; Ur Ttl Prot Creatinine Ratio 0.16 mg/mg (0-0.20)
== END 2024-11-12 07:53 | disposition home or self-care (01) ==
LOC: ANHGOSHLAB 07:53
PROVIDERS: PCP Family Medicine; Visit Provider Internal Medicine Nephrology
DX: E87.5 Hyperkalemia (principal); I10 Essential (primary) hypertension
CPT/HCPCS: 36415; 80069; 82570; 84156

== ENCOUNTER 2025-01-29 08:11 | Outpatient (CLI) | payer MEDICARE, SELFPAY ==
[2025-01-29 13:02] LABS: Cholesterol 162 mg/dL (0-200); HDL Direct 68 mg/dL; Triglycerides 125 mg/dL (<150)
[2025-01-29 13:30] LABS: MALB Creatinine Ratio 9.2 mg/g (0-30)
[2025-01-29 13:47] LABS: Hemoglobin A1C 6.2 % (<5.7)
[2025-01-29 14:09] LABS: Thyroid Stimulating Hormone 0.979 uIU/mL (0.465-4.680)
== END 2025-01-29 08:12 | disposition home or self-care (01) ==
PROVIDERS: PCP Family Medicine; Visit Provider Nurse Practitioner Family
DX: E78.2 Mixed hyperlipidemia (principal); I10 Essential (primary) hypertension; E11.9 Type 2 diabetes mellitus without complications
CPT/HCPCS: 36415; 80061; 82043; 83036; 84443

== ENCOUNTER 2025-03-23 15:14 | Outpatient (NON) | payer MEDICARE, SELFPAY | END 2025-03-23 15:15 | disposition home or self-care (01) | LOC: ANHGOSHLAB 15:15 | PROVIDERS: PCP Family Medicine; Visit Provider Nurse Practitioner Family | DX: R30.0 Dysuria (principal) | CPT/HCPCS: 87086 ==